=== PATIENT | male | born 1970 | race Caucasian/White ===

== ENCOUNTER 2017-11-15 22:26 | Emergency (ER) | payer SELFPAY ==
[~2017-11-15] VITALS: Ht 167.6 cm; Wt 113.4 kg
[~2017-11-15 22:26] MED LIST: MULT-974 PO
[2017-11-15] MEDS ORDERED: methylPREDNISolone 125 MG (Solu-MEDROL) VIAL ONE (22:34)
[2017-11-15] MEDS ORDERED: FAMOTIDINE 20MG/2ML IV (PEPCID) ONE (22:35)
[2017-11-15] MEDS ORDERED: NS IV 1000 ML 1,000 ML ONE (22:41)
[2017-11-15] MEDS ORDERED: FAMOTIDINE 20MG/2ML IV (PEPCID) IV STA (22:42)
[2017-11-15] MEDS ORDERED: methylPREDNISolone 125 MG (Solu-MEDROL) VIAL IV STA (22:42)
[2017-11-15] MEDS ORDERED: NS IV 1000 ML 1,000 ML IV STA (22:42)
[2017-11-15 22:49] LABS: BASOPHILS % (AUTO) 0 % (0-10); EOSINOPHILS # (AUTO) 0.1 10^3/uL (0.0-0.3); EOSINOPHILS % (AUTO) 1 % (0-10); HEMATOCRIT 46 % (40-54); LYMPHOCYTES # (AUTO) 3.5 X 10^3 (1.0-4.0); LYMPHOCYTES % (AUTO) 29 % (12-44); MEAN CORPUSCULAR HEMOGLOBIN 32 PG (25-34); MEAN CORPUSCULAR HGB CONC 37 G/DL (32-36); MEAN CORPUSCULAR VOLUME 87 FL (80-99); MEAN PLATELET VOLUME 10.5 FL (7.4-10.4); MONOCYTES # (AUTO) 0.5 X 10^3 (0.0-1.0); MONOCYTES % (AUTO) 4 % (0-12); NEUTROPHILS # (AUTO) 7.8 X 10^3 (1.8-7.8); NEUTROPHILS % (AUTO) 65 % (42-75); PLATELET COUNT 258 10^3/uL (130-400); RED CELL DISTRIBUTION WIDTH 12.8 % (10.0-14.5)
[2017-11-15 22:57] VITALS: BP 143/76
--- NOTE | 2017-11-15 23:03 | ED General ---
General Chief Complaint: Allergic Reaction Stated Complaint: SOA HEART RACING RED ALL OVER BODY Nursing Triage Note: pt states when he started shaking and turning red, took approx 6 benadryl now has dry mouth and shortness of breath Nursing Sepsis Screen: No Definite Risk Source of Information: Patient Exam Limitations: No Limitations History of Present Illness Date Seen by Provider: Nov 15, 2017 Time Seen by Provider: 22:17 Initial Comments Here with report of feeling shaky and turning red. She apparently had this going on for a while started on blood pressure medicines about a month ago and has not had a problem since. Tonight he had onset of the redness and pruritus and took 6 ea 25 mg Benadryl tablets in an effort to reduce the symptoms and this did not work. Presents with red skin and high blood pressure. He did take his head blood pressure medicine but he does not know what that was as it is a new medicine. Denies shortness of breath. Does complain of some bubbling in his stomach and a dry mouth. Reports symptoms have been mildly present up to a few hours prior to full onset. Timing/Duration: 1 Hour Severity: Moderate Modifying Factors: improves with Medication Associated Systoms: No Chest Pain, No Cough, No Fever/Chills, No Nausea/ Vomiting, No Shortness of Air, No Weakness Allergies and Home Medications Allergies Coded Allergies: Iodinated Contrast Media - IV Dye (Unverified Adverse Reaction, Mild, RASH , 07/30/07) PT STATED ALLERGY TO "IV CONTRAST". STATED REACTION WAS A RASH. Uncoded Allergies: ENVIRONMENTAL (Allergy, Mild, 08/29/08) Home Medications Multivitamin 1 Each Tablet, 1 EACH PO DAILY, (Reported) Patient Home Medication List Home Medication List Reviewed: Yes Constitutional: see HPI, No chills, No fever EENTM: no symptoms reported Respiratory: no symptoms reported Cardiovascular: no symptoms reported, No chest pain, No edema, No palpitations Gastrointestinal: see HPI, No abdominal pain, No nausea, No vomiting Genitourinary: no symptoms reported Musculoskeletal: no symptoms reported Skin: see HPI, change in color, No lesions, pruritus Psychiatric/Neurological: No Symptoms Reported All Other Systems Reviewed Negative Unless Noted: Yes Past Znfxtic-Nzguqm-Fmfgtj Hx Patient Social History Alcohol Use: Occasionally Uses Recreational Drug Use: No Smoking Status: Never a Smoker Recent Foreign Travel: No Contact w/Someone Who Travel: No Recent Infectious Disease Expo: No Surgeries History of Surgeries: No Respiratory History of Respiratory Disorde: No Cardiovascular History of Cardiac Disorders: Yes Cardiac Disorders: Hypertension Neurological History of Neurological Disord: No Reproductive System Hx Reproductive Disorders: No Gastrointestinal History of Gastrointestinal Di: No Musculoskeletal History of Musculoskeletal Dis: No Psychosocial History of Psychiatric Problem: Yes Reviewed Nursing Assessment Reviewed/Agree w Nursing PMH: Yes Family Medical History Significant Family History: No Pertinent Family Hx Physical Exam Vital Signs Vital Signs - First Documented 11/15/17 22:46 Temp 98.9 Pulse 117 Resp 20 B/P (MAP) 159/116 (130) Pulse Ox 96 Capillary Refill : Less Than 3 Seconds General Appearance: WD/WN, Anxious HEENT: PERRL/EOMI, Pharynx Normal Neck: Non Tender, Supple Respiratory: Lungs Clear, Normal Breath Sounds Cardiovascular: Regular Rate, Rhythm, No Murmur Gastrointestinal: Non Tender, Soft Back: Normal Inspection, No CVA Tenderness, No Vertebral Tenderness Extremity: Normal Range of Motion, Non Tender Neurologic/Psychiatric: Alert, Oriented x3 Skin: Warm/Dry, Erythema, Other (erythematous all skin surfaces. This is blanchable. Denies pruritus or pain.) Progress/Results/Core Measures Suspected Sepsis Recent Fever Within 48 Hours: No Infection Criteria Present: None New/Unexplained Altered Menta: No Sepsis Screen: No Definite Risk Sepsis Diagnosis: SIRS Temperature:98.9 Pulse: 117 Respiratory Rate: 20 Laboratory Tests 11/15/17 22:41: White Blood Count 12.0H Blood Pressure 159 /116 Mean: 130 Laboratory Tests 11/15/17 22:41: Creatinine 1.18, Platelet Count 258, Total Bilirubin 0.5 Results/Orders Lab Results Laboratory Tests Test 11/15/17 22:41 Range/Units White Blood Count 12.0 H 4.3-11.0 10^3/uL Red Blood Count 5.30 4.35-5.85 10^6/uL Hemoglobin 17.0 13.3-17.7 G/DL Hematocrit 46 40-54 % Mean Corpuscular Volume 87 80-99 FL Mean Corpuscular Hemoglobin 32 25-34 PG Mean Corpuscular Hemoglobin Concent 37 H 32-36 G/DL Red Cell Distribution Width 12.8 10.0-14.5 % Platelet Count 258 130-400 10^3/uL Mean Platelet Volume 10.5 H 7.4-10.4 FL Neutrophils (%) (Auto) 65 42-75 % Lymphocytes (%) (Auto) 29 12-44 % Monocytes (%) (Auto) 4 0-12 % Eosinophils (%) (Auto) 1 0-10 % Basophils (%) (Auto) 0 0-10 % Neutrophils # (Auto) 7.8 1.8-7.8 X 10^3 Lymphocytes # (Auto) 3.5 1.0-4.0 X 10^3 Monocytes # (Auto) 0.5 0.0-1.0 X 10^3 Eosinophils # (Auto) 0.1 0.0-0.3 10^3/uL Basophils # (Auto) 0.0 0.0-0.1 10^3/uL Sodium Level 139 135-145 MMOL/L Potassium Level 3.8 3.6-5.0 MMOL/L Chloride Level 105 98-107 MMOL/L Carbon Dioxide Level 22 21-32 MMOL/L Anion Gap 12 5-14 MMOL/L Blood Urea Nitrogen 17 7-18 MG/DL Creatinine 1.18 0.60-1.30 MG/DL Estimat Glomerular Filtration Rate > 60 BUN/Creatinine Ratio 14 Glucose Level 241 H 70-105 MG/DL Calcium Level 9.7 8.5-10.1 MG/DL Total Bilirubin 0.5 0.1-1.0 MG/DL Aspartate Amino Transf (AST/SGOT) 28 5-34 U/L Alanine Aminotransferase (ALT/SGPT) 48 0-55 U/L Alkaline Phosphatase 81 40-136 U/L Total Protein 7.6 6.4-8.2 GM/DL Albumin 4.5 3.2-4.5 GM/DL My Orders Orders - ZIGGY AMANDA MD Methylprednisolone Sod Succ (Solu-Medrol (11/15/17 22:34) Famotidine Injection (Pepcid Injection) (11/15/17 22:35) Cbc With Automated Diff (11/15/17 22:42) Comprehensive Metabolic Panel (11/15/17 22:42) Methylprednisolone Sod Succ (Solu-Medrol (11/15/17 22:42) Ns Iv 1000 Ml (Sodium Chloride 0.9%) (11/15/17 22:42) Famotidine Injection (Pepcid Injection) (3/4/18 22:42) Saline Lock/Iv-Start (11/15/17 22:42) Ns Iv 1000 Ml (Sodium Chloride 0.9%) (11/15/17 22:41) Vital Signs/I&O Vital Sign - Last 12Hours 11/15/17 11/15/17 22:46 22:57 Temp 98.9 Pulse 117 Resp 20 20 B/P (MAP) 159/116 (130) 143/76 (98) Pulse Ox 96 Capillary Refill : Less Than 3 Seconds Blood Pressure Mean: 130 Progress Note : Progress Note Seen and evaluated. IV, labs, normal saline 1 L bolus, Solu-Medrol 125 mg IV, Pepcid 20 mg IV ordered. Monitor patient. 2335, symptoms are markedly improving. Fluids were also completed. I did talk with him about making a diary of events leading up to his episodes to see if he can find a common denominator causing these symptoms. We also discussed at home therapy including Benadryl appropriate dosing and the addition of famotidine or ranitidine. Monitor patient. 0015: Much improved. Discharged home with return precautions. Patient verbalize understanding instructions and agreement with plan. Departure Impression Impression: Primary Impression: Allergic reaction Qualified Codes: T78.40XA - Allergy, unspecified, initial encounter Disposition: HOME, SELF-CARE Condition: Improved Departure-Patient Inst. Decision time for Depature: 00:16 Referrals: NO,LOCAL PHYSICIAN (PCP) Primary Care Physician Patient Instructions: Anaphylaxis (DC) Add. Discharge Instructions: All discharge instructions reviewed with patient and/or family. Voiced understanding. Follow-up with your DrMargarita in a few days for recheck. Take home medications as directed. Take prescribed medication as directed. If you have symptoms, you may take Benadryl (diphenhydramine) 2 tablets or 50 mg at onset of symptoms ( max dose 100 mg or 4 tablets). You may also take famotidine (Pepcid) 20 mg at onset the symptoms for ranitidine (Zantac) 150 mg at onset of symptoms. You should carry one of the other of these with you as well as the Benadryl at all times he should have allergic reaction. Return for worse pain, fever, vomiting , weakness, breathing problems or other concerns as needed. Scripts Prednisone (Prednisone) 20 Mg Tab 40 MG PO DAILY, #6 TAB 0 Refills Prov: ZIGGY AMANDA MD 11/16/17 ZIGGY AMANDA MD Nov 15, 2017 23:03
[2017-11-15 23:07] LABS: ALANINE AMINOTRANSFERASE 48 U/L (0-55); ALBUMIN 4.5 GM/DL (3.2-4.5); ALKALINE PHOSPHATASE 81 U/L (40-136); BILIRUBIN,TOTAL 0.5 MG/DL (0.1-1.0); BUN/CREATININE RATIO 14; CALCIUM 9.7 MG/DL (8.5-10.1); CARBON DIOXIDE 22 MMOL/L (21-32); CHLORIDE 105 MMOL/L (98-107); CREATININE SERUM 1.18 MG/DL (0.60-1.30); GFR ESTIMATED > 60; GLUCOSE 241 MG/DL (70-105); POTASSIUM 3.8 MMOL/L (3.6-5.0); SODIUM 139 MMOL/L (135-145); TOTAL PROTEIN 7.6 GM/DL (6.4-8.2)
[2017-11-16] MEDS ORDERED: PRD20T PO (00:19)
[2017-11-16 00:24] VITALS: BP 143/76
== END 2017-11-16 00:24 | disposition home or self-care (01) ==
LOC: EDUNIT# 22:26 → ER 22:28
DX: T78.40XA Allergy, unspecified, initial encounter (principal); I10 Essential (primary) hypertension; Z91.041 Radiographic dye allergy status
CPT/HCPCS: 36415; 80053; 85025

== ENCOUNTER 2019-06-29 00:30 | Observation (INO) | payer BC ==
[~2019-06-29] VITALS: Ht 165.1 cm; Wt 97.7 kg
[~2019-06-29 00:30] MED LIST changes: +PRD20T PO
[2019-06-29] MEDS ORDERED: ASPIRIN 81 MG CHEW (CHILDREN'S ASA) PO ONE (00:45)
[2019-06-29] MEDS ORDERED: NITROGLYCERIN 0.4 MG SL TABS BTL 25'S SL PRN (00:45)
[2019-06-29 00:53] LABS: BASOPHILS % (AUTO) 1 % (0-10); EOSINOPHILS % (AUTO) 1 % (0-10); HEMATOCRIT 45 % (40-54); HEMOGLOBIN 16.2 G/DL (13.3-17.7); LYMPHOCYTES # (AUTO) 1.6 X 10^3 (1.0-4.0); LYMPHOCYTES % (AUTO) 23 % (12-44); MEAN CORPUSCULAR HEMOGLOBIN 31 PG (25-34); MEAN CORPUSCULAR HGB CONC 36 G/DL (32-36); MEAN CORPUSCULAR VOLUME 87 FL (80-99); MEAN PLATELET VOLUME 10.1 FL (7.4-10.4); MONOCYTES # (AUTO) 0.3 X 10^3 (0.0-1.0); MONOCYTES % (AUTO) 4 % (0-12); NEUTROPHILS # (AUTO) 5.1 X 10^3 (1.8-7.8); NEUTROPHILS % (AUTO) 73 % (42-75); PLATELET COUNT 224 10^3/uL (130-400); RED CELL DISTRIBUTION WIDTH 13.1 % (10.0-14.5)
[2019-06-29] MEDS ORDERED: NS IV 1000 ML 1,000 ML IV ONE (00:58)
[2019-06-29] MEDS ORDERED: meTOprolol TARTRATE 25 MG (LOPRESSOR) TABLET PO ONE (01:00)
[2019-06-29 01:04] LABS: INR 0.9 (0.8-1.4); PROTHROMBIN TIME PATIENT 12.5 SEC (12.2-14.7)
[2019-06-29 01:13] LABS: ALANINE AMINOTRANSFERASE 51 U/L (0-55); ALBUMIN 4.6 GM/DL (3.2-4.5); ALKALINE PHOSPHATASE 76 U/L (40-136); BILIRUBIN,TOTAL 0.5 MG/DL (0.1-1.0); BUN/CREATININE RATIO 12; CARBON DIOXIDE 25 MMOL/L (21-32); CHLORIDE 102 MMOL/L (98-107); CREATININE SERUM 1.03 MG/DL (0.60-1.30); GFR ESTIMATED > 60; GLUCOSE 163 MG/DL (70-105); MAGNESIUM 1.8 MG/DL (1.6-2.4); POTASSIUM 3.8 MMOL/L (3.6-5.0); SODIUM 138 MMOL/L (135-145); TOTAL PROTEIN 7.9 GM/DL (6.4-8.2)
--- NOTE | 2019-06-29 01:22 | ED Chest Pain ---
General Chief Complaint: Chest Pain Stated Complaint: CP,SOB Source: patient Exam Limitations: no limitations History of Present Illness Date Seen by Provider: Jun 29, 2019 Time Seen by Provider: 00:53 Initial Comments Here with intermittent chest pressure and palpitations. States he feels his heart flutter and he has to cough and then it goes away. This is been intermittent since Thursday night after drinking wine and then having activity afterwards. Denies nausea, vomiting, sweating or weakness. Does feel short of breath during the episodes. Has never had anything like this before. He did take a prednisone tonight thinking it might be related to allergic or action which she sometimes gets. He does have environmental allergies. Timing/Duration: changing over time, intermittent, 2-3 days Severity/Quality: mild, pressure, other (palpitations) Location: central Radiation: no radiation Activities at Onset: activity Prior CP/Workup: no prior cardiac workup Modifying Factors: improves with rest ASA po POLICE JUSTICE: Yes (took at home prior to arrival) NTG SL POLICE JUSTICE: No Associated Symptoms: No abdominal pain, No diaphoresis, No fever/chills, No nausea/vomiting; shortness of breath; No weakness Allergies and Home Medications Allergies Coded Allergies: Iodinated Contrast Media - IV Dye (Unverified Adverse Reaction, Mild, RASH, 07/30/07) PT STATED ALLERGY TO "IV CONTRAST". STATED REACTION WAS A RASH. Uncoded Allergies: ENVIRONMENTAL (Allergy, Mild, 08/29/08) Home Medications Multivitamin 1 Each Tablet, 1 EACH PO DAILY, (Reported) Prednisone 20 Mg Tab, 40 MG PO DAILY Prescribed by: ZIGGY AMANDA on 11/16/17 0019 Patient Home Medication List Home Medication List Reviewed: Yes Review of Systems Review of Systems Constitutional: see HPI; No chills, No fever EENTM: No Symptoms Reported Respiratory: See HPI, Cough; Denies SOA at Rest Cardiovascular: Chest Pain; Denies Lightheadedness; Palpitations Gastrointestinal: No Symptoms Reported Genitourinary: No Symptoms Reported All Other Systems Reviewed Negative Unless Noted: Yes Past Hnewbnl-Fcsoxy-Rvjaoo Hx Past Med/Social Hx: Reviewed Nursing Past Med/Soc Hx Patient Social History Alcohol Use: Occasionally Uses Recreational Drug Use: No Smoking Status: Never a Smoker Recent Foreign Travel: No Contact w/Someone Who Travel: No Past Medical History Surgeries: No Respiratory: No Cardiac: Yes Hypertension Neurological: No Reproductive Disorders: No Gastrointestinal: No Musculoskeletal: No Psychosocial: Yes Family Medical History Reviewed Nursing Family Hx No Pertinent Family Hx Physical Exam Vital Signs Vital Signs - First Documented Capillary Refill : Height, Weight, BMI Height: 5'6.00" Weight: 250lbs. oz. [id number]; BMI Method:Estimated General Appearance: WD/WN, Anxious HEENT: PERRL/EOMI, Pharynx Normal Neck: Non Tender, Supple Respiratory: Lungs Clear, Normal Breath Sounds Cardiovascular: Regular Rate, Rhythm, No Murmur, Other (occasional PAC noted on monitor.) Gastrointestinal: Non Tender, Soft Extremity: Normal Inspection, Normal Range of Motion, Non Tender, No Calf Tenderness Neurologic/Psychiatric: Alert, Oriented x3 Skin: Normal Color, Warm/Dry Progress/Results/Core Measures Results/Orders Lab Results Laboratory Tests Test 06/29/19 00:42 06/29/19 02:38 Range/Units White Blood Count 7.0 4.3-11.0 10^3/uL Red Blood Count 5.23 4.35-5.85 10^6/uL Hemoglobin 16.2 13.3-17.7 G/DL Hematocrit 45 40-54 % Mean Corpuscular Volume 87 80-99 FL Mean Corpuscular Hemoglobin 31 25-34 PG Mean Corpuscular Hemoglobin Concent 36 32-36 G/DL Red Cell Distribution Width 13.1 10.0-14.5 % Platelet Count 224 130-400 10^3/uL Mean Platelet Volume 10.1 7.4-10.4 FL Neutrophils (%) (Auto) 73 42-75 % Lymphocytes (%) (Auto) 23 12-44 % Monocytes (%) (Auto) 4 0-12 % Eosinophils (%) (Auto) 1 0-10 % Basophils (%) (Auto) 1 0-10 % Neutrophils # (Auto) 5.1 1.8-7.8 X 10^3 Lymphocytes # (Auto) 1.6 1.0-4.0 X 10^3 Monocytes # (Auto) 0.3 0.0-1.0 X 10^3 Eosinophils # (Auto) 0.0 0.0-0.3 10^3/uL Basophils # (Auto) 0.0 0.0-0.1 10^3/uL Prothrombin Time 12.5 12.2-14.7 SEC INR Comment 0.9 0.8-1.4 Activated Partial Thromboplast Time 31 24-35 SEC D-Dimer 0.43 0.00-0.49 UG/ML Sodium Level 138 135-145 MMOL/L Potassium Level 3.8 3.6-5.0 MMOL/L Chloride Level 102 98-107 MMOL/L Carbon Dioxide Level 25 21-32 MMOL/L Anion Gap 11 5-14 MMOL/L Blood Urea Nitrogen 12 7-18 MG/DL Creatinine 1.03 0.60-1.30 MG/DL Estimat Glomerular Filtration Rate > 60 BUN/Creatinine Ratio 12 Glucose Level 163 H 70-105 MG/DL Calcium Level 10.0 8.5-10.1 MG/DL Corrected Calcium 8.5-10.1 MG/DL Magnesium Level 1.8 1.6-2.4 MG/DL Total Bilirubin 0.5 0.1-1.0 MG/DL Aspartate Amino Transf (AST/SGOT) 31 5-34 U/L Alanine Aminotransferase (ALT/SGPT) 51 0-55 U/L Alkaline Phosphatase 76 40-136 U/L Myoglobin 54.3 10.0-92.0 NG/ML Troponin I < 0.028 < 0.028 <0.028 NG/ML Total Protein 7.9 6.4-8.2 GM/DL Albumin 4.6 H 3.2-4.5 GM/DL Thyroid Stimulating Hormone (TSH) 1.04 0.35-4.94 UIU/ML My Orders Orders - ZIGGY AMANDA MD Cbc With Automated Diff (06/29/19 00:42) Magnesium (06/29/19 00:42) Chest 1 View, Ap/Pa Only (06/29/19 00:42) Ekg Tracing (06/29/19 00:42) Cardiac Profile 1 (06/29/19 00:42) Comprehensive Metabolic Panel (06/29/19 00:42) Myoglobin Serum (06/29/19 00:42) Protime With Inr (06/29/19 00:42) Partial Thromboplastin Time (06/29/19 00:42) O2 (06/29/19 00:42) Monitor-Rhythm Ecg Trace Only (06/29/19 00:42) Lipid Panel (06/30/19 06:00) Ed Iv/Invasive Line Start (06/29/19 00:42) Nitroglycerin 0.4 Mg Btl 25's (Nitrostat (06/29/19 00:45) Aspirin Chewable Tablet (Baby Aspirin Ch (06/29/19 00:45) Ed Iv/Invasive Line Start (06/29/19 00:58) Ns Iv 1000 Ml (Sodium Chloride 0.9%) (06/29/19 00:58) Metoprolol Tartrate (Ir) Tab (Lopressor (06/29/19 01:00) Fibrin Degradation Products (06/29/19 01:00) Thyroid Stimulating Hormone (06/29/19 02:09) Troponin I (06/29/19 02:24) Metoprolol Succinate (Xl) Tab (Toprol Xl (06/29/19 09:00) Apixaban Tablet (Eliquis Tablet) (06/29/19 03:30) Medications Given in ED Current Medications Medications Dose Ordered Sig/Gucci Route Start Time Stop Time Status Last Admin Dose Admin Apixaban 5 mg ONCE ONCE PO 06/29/19 03:30 06/29/19 03:32 DC 06/29/19 03:45 5 MG Metoprolol Tartrate 25 mg ONCE ONCE PO 06/29/19 01:00 06/29/19 01:01 DC 06/29/19 01:05 25 MG Sodium Chloride 1,000 ml @ 0 mls/hr Q0M ONCE IV 06/29/19 00:58 06/29/19 01:00 DC 06/29/19 01:05 1,000 MLS/HR Vital Signs/I&O 06/29/19 06/29/19 06/29/19 00:34 00:34 00:34 Temp 35.5 Pulse 86 Resp 20 B/P (MAP) 158/87 (110) Pulse Ox 100 100 O2 Delivery Room Air Room Air Room Air Progress Progress Note : Progress Note Seen and evaluated. IV, labs, EKG and chest x-ray ordered. ASA ordered but held as patient reported taking at home. Nitroglycerin sublingual ordered when necessary although held as he is not having active persistent chest pain currently. We will give normal saline 1 L bolus and metoprolol 25 mg by mouth now. Monitor patient. 0300: Blood sugar elevated in the 160s on labs. He admits to taking prednisone today and I believe this is likely the cause for that. Could consider continue outpatient evaluation for his blood sugar to see if this is persistent when off steroids. 0325: We have repeated troponin and this is negative. Patient was actually doing much better after metoprolol with respect to rate that was noted to be 70s and sinus on the monitor. On reevaluation, patient now is showing atrial tachycardia that appears to be atrial fibrillation and intermittently sinus tachycardia with PACs as well. Heart rate will intermittently go up into the 140s. I am concerned that this is atrial fibrillation. 0340 Dr. Fernando ho and I did discuss with him shortly after. We will go ahead and initiate Toprol-XL 100 mg by mouth and Eliquis 5 mg by mouth with continued dosing. Given patient's concern and persistence of the intermittent atrial tachycardia with chest discomfort, we will go ahead and admit the patient observation status. Patient prefers this. To be admitted to Dr. Fernando tong. Pending bed assignment. Monitor patient. 0540: Patient did have some persistence in his episodes of tachycardia. Lopressor 5 mg IV given and to allow for the Toprol-XL to begin working better. Patient will go to cardiac step down. He is still having episodes of tachycardia that range from the 70s briefly up to 130s to 140s. He does feel the palpitations when the heart rate elevates. 0545: Patient to cardiac step down. Initial ECG Impression Date: Jun 29, 2019 Initial ECG Impression Time: 00:40 Initial ECG Rate: 80 Initial ECG Rhythm: Normal Sinus Initial ECG Impression: Normal Initial ECG Comparisson: No Previous ECG Available Comment Sinus rhythm with normal axis. No evidence of ST elevation [place]. No previous elbow for comparison. Interpreted by me. EKG : EKG Time: 03:18 Rhythm: A Fib/Flutter Comment Atrial tachycardia that is paroxysmal and irregular with intermittent periods of sinus with PACs. Normal axis. No evidence of ST elevation [place]. Interpreted by me. Diagnostic Imaging Diagonstic Imaging: Xray Plain Films/CT/US/NM/MRI: chest Comments No acute findings when compared to previous. Reviewed: Reviewed by Me Departure Communication (Admissions) Time/Spoke to Admitting Phy: 03:40 Impression Primary Impression: Paroxysmal atrial fibrillation with rapid ventricular response Disposition: ADMITTED INPATIENT Condition: Stable Admissions Decision to Admit Reason: Admit from ER (General) Decision to Admit/Date: Jun 29, 2019 Time/Decision to Admit Time: 03:40 Departure-Patient Inst. Referrals: RIKKI MILES MD (PCP/Family) Primary Care Physician ZIGGY AMANDA MD Jun 29, 2019 01:22
[2019-06-29] MEDS ORDERED: APIXABAN 5 MG (ELIQUIS) TABLET PO ONE (03:30)
[2019-06-29] MEDS ORDERED: meTOproloL SUCCINATE 50 MG (TOPROL XL) TAB PO ONE (03:40)
[2019-06-29] MEDS ORDERED: meTOprolol 5 MG/5 ML (LOPRESSOR) VIAL IV ONE (05:15)
[2019-06-29 05:55] VITALS: BP 97/88
[2019-06-29] MEDS ORDERED: NS IV 1000 ML 1,000 ML IV SCH (06:15)
[2019-06-29 06:20] VITALS: BP 97/88
--- NOTE | 2019-06-29 06:47 | Diagnostic Imaging Report ---
INDICATION: Chest pain and shortness of breath. Comparison made with prior examination 11/28/2018. FINDINGS: The heart size, mediastinal configuration, and pulmonary vascularity are within normal limits. There is no pleural effusion, pneumothorax, or pneumonia. The osseous structures are unremarkable. IMPRESSION: No acute cardiopulmonary abnormality. Dictated by: Dictated on workstation # [id number]
[2019-06-29 08:00] VITALS: BP 124/92
[2019-06-29] MEDS ORDERED: LORA10TA7 PO (08:59)
[2019-06-29] MEDS ORDERED: VITA400C60 PO (08:59)
[2019-06-29] MEDS ORDERED: CYAN-41 PO (08:59)
[2019-06-29] MEDS ORDERED: MULT1TAB69 PO (08:59)
[2019-06-29] MEDS ORDERED: ACTI200C PO (08:59)
[2019-06-29] MEDS ORDERED: DICL50TA6 PO (08:59)
[2019-06-29] MEDS ORDERED: OMG1KC PO (08:59)
[2019-06-29] MEDS ORDERED: APIXABAN 5 MG (ELIQUIS) TABLET PO SCH (09:00)
[2019-06-29] MEDS ORDERED: meTOproloL SUCCINATE 50 MG (TOPROL XL) TAB PO SCH (09:00)
[2019-06-29] MEDS ORDERED: meTOprolol SUCCINATE 100 MG (TOPROL XL) TAB PO SCH (09:00)
--- NOTE | 2019-06-29 09:00 | NUR ---
SPOKE WITH THE PATIENT ABOUT HIS MEDICATIONS. HE STATES HE DOES NOT TAKE ANY PRESCRIPTIONS BUT DID LIST HIS OTC MEDS. HE FILLED DICLOFENAC YESTERDAY AND STATES THIS WAS PRESCRIBED FOR HIS PLANTAR FASCIITIS, HE HAS NOT PICKED IT UP YET. I ADDED IT TO THE MED REC AT THIS TIME FOR REVIEW. HE TAKES THE FOLLOWING OTC: LORATADINE BID PRN VITAMIN E DAILY MTV DAILY FISH OIL DAILY B12 DAILY ACTIVATED CHARCOAL DAILY
--- NOTE | 2019-06-29 09:10 | History & Physical ---
History of Present Illness HPI/Chief Complaint Chief complaint: Palpitations History of present illness: This is a 49-year-old male clinic patient of mine who doesn't come to see me very often who reported palpitations in the past after alcohol use and I even offered a Holter monitor to confirm the suspicion of atrial fibrillation by placing on Holter monitor and drinking alcohol but he wanted to hold off on that when I saw him several months ago. He also has a history of hyperglycemia with mild borderline levels so recommended limit carbohydrates. I also discussed with him regarding my suspicion of obstructive sleep apnea which I talked to him about when I last saw him in the clinic but considering the atrial fibrillation episode he is currently having likely has a a large factor in untreated sleep apnea condition. He reports that he started having palpitations at 9 p.m. and finally worsened to the point he went to the ER found to have normal sinus rhythm with PACs then transition to atrial fibrillation which was not well controlled on medications. I did confer with Dr. King. Source: patient, RN/MD, old records Exam Limitations: no limitations Date Seen 06/29/19 Time Seen by a Provider: 08:45 Attending Physician Liza Daniels DO PCP Liza Daniels DO Referring Physician Date of Admission Jun 29, 2019 at 03:40 Home Medications & Allergies Home Medications Reviewed patient Home Medication Reconciliation performed by pharmacy medication reconciliations landscape technician and/or nursing. Patients Allergies have been reviewed. Allergies Allergies Coded Allergies Iodinated Contrast Media (Unverified Adverse Reaction, Mild, RASH, 07/30/07) PT STATED ALLERGY TO "IV CONTRAST". STATED REACTION WAS A RASH. Uncoded Allergies ENVIRONMENTAL ( Allergy, Mild, 08/29/08) Past Aetifhg-Nvuojm-Yxtwmx Hx Past Med/Social Hx: Reviewed Nursing Past Med/Soc Hx, Reviewed and Corrections made Patient Social History Marrital Status: Employed/Student: employed Alcohol Use: Occasionally Uses Recreational Drug Use: No Smoking Status: Never a Smoker Recent Foreign Travel: No Contact w/other who traveled: No Recent Infectious Disease Expo: No Immunizations Up To Date Tetanus Booster (TDap): Less than 5yrs Pediatric: Yes Past Medical History Cardiac: Hypertension Reproductive: No Sexually Transmitted Disease: No History of Blood Disorders: No Family History Reviewed Nursing Family Hx Cardiovascular disease uncle, Onset:Unknown maternal gpa, , Age:50's - 60, Onset:Unknown FH: prostate cancer 19 FATHER, Onset:Unknown No Pertinent Family Hx Review of Systems Constitutional: see HPI Respiratory: dyspnea on exertion Cardiovascular: palpitations Psychiatric/Neurological: Anxiety Physical Exam Physical Exam Vital Signs Vital Signs - First Documented Capillary Refill : Less Than 3 Seconds Height, Weight, BMI Height: 5'6.00" Weight: 250lbs. oz. [id number]; 35.84 BMI Method:Estimated General Appearance: WD/WN, Anxious, Mild Distress HEENT: PERRL/EOMI, Normal ENT Inspection, Pharynx Normal Neck: Non Tender, Supple Respiratory: Chest Non Tender, Lungs Clear, Normal Breath Sounds, No Accessory Muscle Use, No Respiratory Distress Cardiovascular: Regular Rate, Rhythm, No Edema, No Gallop, No JVD, No Murmur, Other (occasional PAC noted on monitor.) Gastrointestinal: Non Tender, Soft Extremity: Normal Inspection, Normal Range of Motion, Non Tender, No Calf Tenderness Neurologic/Psychiatric: Alert, Oriented x3, No Motor/Sensory Deficits, Normal Mood/Affect, manager research II-XII Norm as Tested Skin: Normal Color, Warm/Dry Results Results/Procedures Labs Laboratory Tests 06/29/19 00:42 Patient resulted labs reviewed. Assessment/Plan Admission Diagnosis Assessment: New diagnosis of atrial fibrillation with history of palpitations in the past after alcohol use but now this was not related to alcohol use with rapid ventricular response requiring admission to the hospital with cardiology consultation History of hyperglycemia Hypertension Obesity High suspicion for obstructive sleep apnea Plan: Repeat sleep study as an outpatient Appreciate cardiology consultation Oral adequate coloration Rate control Admission Status: Observation Diagnosis/Problems Diagnosis/Problems (1) Paroxysmal atrial fibrillation with rapid ventricular response Status: Acute Assessment & Plan: Consult Dr. King Rate control medication Oral anticoagulation for stroke prophylaxis May need cardioversion in the future (2) Hyperglycemia Status: Chronic Assessment & Plan: Patient aware of borderline hyperglycemia Limit carbohydrates (3) Sleep apnea Status: Acute Assessment & Plan: I have long suspected obstructive sleep apnea and we will arrange sleep study as an outpatient Qualifiers: Sleep apnea type: unspecified type Qualified Codes: G47.30 - Sleep apnea, unspecified (4) Obesity (BMI 30-39.9) Status: Chronic Assessment & Plan: Modify dietary intake and increase aerobic exercise for weight loss Clinical Quality Measures AMI/AHF: ASA po Prior to arrival: Yes (took at home prior to arrival) DVT/VTE Risk/Contraindication: Risk Factor Score Per Nursin RFS Level Per Nursing on Admit: 2=Moderate LIZA DANIELS DO Jun 29, 2019 09:10
--- NOTE | 2019-06-29 09:16 | Cardiology History & Physical ---
HPI-Cardiology Cardiology H&P Date of Admission 06/29/19 Primary Care Physician Dionna Chong MD Attending Physician Dustin King MD MA FACP [facility] Primary care physician: Dr Daniels Consulting Physician [facility] CC: Palpitations HPI: 49 yo man with intermittent palpitations for several years, lasting seconds to minutes at a time. On 06/26/19, had a bottle of wine and started to feel palpitation, episodes would last several minutes. On 06/27/19, he was having these palp longer and more frequent. On 06/28/19, these were worse still. Came to ER. Diagnosed with PAF. States has had similar episodes on his "drinking nights" in the past, too. No cp or syncope. Has chronic, slowly progressive, exertional shortness of breath. No leg swelling Review of Systems-Cardiology Review of Systems Constitutional: No malaise, No tiredness, No weight loss, No weight gain Eyes: No vision change Ears/Nose/Throat: No ear discharge, No nasal drainage, No recent hearing loss Respiratory: As described under HPI Cardiovascular: As described under HPI Gastrointestinal: No diarrhea, No nausea, No vomiting Genitourinary: No dysuria, No hematuria Musculoskeletal: No back pain, No joint pain Skin: No rash, No ulcerations Psychiatric/Neurological: No seizure, No focal weakness, No syncope Hematologic: No bleeding abnormalities All Other Systems Reviewed Negative Unless Noted: Yes MPH-Vhxxym-Zhqqot Hx Patient Social History Alcohol Use: Occasionally Uses Recreational Drug Use: No Smoking Status: Never a Smoker Recent Foreign Travel: No Recent Infectious Disease Expo: No Hospitalization with Isolation: Denies Immunizations Up To Date Tetanus Booster (TDap): Less than 5yrs Past Medical History PMH As described under Assessment. Family Medical History Family History: Cardiovascular disease uncle, Onset:Unknown maternal gpa, , Age:50's - 60, Onset:Unknown FH: prostate cancer 19 FATHER, Onset:Unknown Allergies and Home Medications Allergies Coded Allergies: Iodinated Contrast Media (Unverified Adverse Reaction, Mild, RASH, 07/30/07) PT STATED ALLERGY TO "IV CONTRAST". STATED REACTION WAS A RASH. Uncoded Allergies: ENVIRONMENTAL (Allergy, Mild, 08/29/08) Home Medications Activated Charcoal 200 Mg Capsule, 200 MG PO DAILY, (Reported) Cyanocobalamin (Vitamin B-12) 1,000 Mcg Tablet, 1,000 MCG PO DAILY, (Reported) Diclofenac Sodium 50 Mg Tablet.dr, 50 MG PO TID PRN for PLANTAR FASCIITIS, (Reported) HAS NOT PICKED UP YET Loratadine 10 Mg Tablet, 10 MG PO BID PRN for ALLERGIES, (Reported) Multivitamin 1 Each Tablet, 1 TAB PO DAILY, (Reported) [place] 3 Polyunsat Fatty Acids 1,000 Mg Cap, 1,000 MG PO DAILY, (Reported) Vitamin E Acetate 400 Unit Capsule, 400 UNIT PO DAILY, (Reported) Patient Home Medication List Home Medication List Reviewed: Yes Physical Exam-Cardiology Physical Exam Vital Signs/I&O 06/29/19 06/29/19 06/29/19 06/29/19 00:34 00:34 00:34 05:40 Temp 35.5 Pulse 86 Resp 20 B/P (MAP) 158/87 (110) Pulse Ox 100 100 O2 Delivery Room Air Room Air Room Air Room Air 06/29/19 06/29/19 06/29/19 06/29/19 05:42 05:54 05:55 06:20 Temp 35.5 37.2 37.2 Pulse 134 117 118 118 Resp 20 18 18 B/P (MAP) 136/69 (110) 97/88 (91) 97/88 Pulse Ox 100 97 97 O2 Delivery Room Air Room Air Room Air 06/29/19 06/29/19 06/29/19 06/29/19 07:00 07:56 07:58 08:00 Temp 36.5 Pulse 110 71 Resp 20 B/P (MAP) 124/92 (103) Pulse Ox 96 O2 Delivery Room Air Room Air Capillary Refill : Less Than 3 Seconds Constitutional: AAO x 3, well-developed, well-nourished HEENT: PERRL, EOMI, hearing is well preserved; No xanthelasmas are seen Neck: carotid pulses are 2 + bilaterally, with good upstrokes Respiratory: accessory muscle use; No lungs clear to percussion, No lungs clear to auscultation Cardiovascular: regular rate-rhythm, S1 and S2, systolic murmur (faint OMARI at card base) Gastrointestinal: No tender; soft; No guarding, No rebound; audible bowel sounds Extremities: No swelling, No cyanosis, No significant edema Neurologic/Psychiatric: oriented x 3, grossly intact, power is 5/5 both on sides Skin: No rash on exposed areas, No ulcerations on exposed areas Data Review Labs Laboratory Tests 06/29/19 00:42: White Blood Count 7.0, Red Blood Count 5.23, Hemoglobin 16.2, Hematocrit 45, Mean Corpuscular Volume 87, Mean Corpuscular Hemoglobin 31, Mean Corpuscular Hemoglobin Concent 36, Red Cell Distribution Width 13.1, Platelet Count 224, Mean Platelet Volume 10.1, Neutrophils (%) (Auto) 73, Lymphocytes (%) (Auto) 23, Monocytes (%) (Auto) 4, Eosinophils (%) (Auto) 1, Basophils (%) (Auto) 1, Neutrophils # (Auto) 5.1, Lymphocytes # (Auto) 1.6, Monocytes # (Auto) 0.3, Eosinophils # (Auto) 0.0, Basophils # (Auto) 0.0, Prothrombin Time 12.5, INR Comment 0.9, Activated Partial Thromboplast Time 31, D-Dimer 0.43, Sodium Level 138, Potassium Level 3.8, Chloride Level 102, Carbon Dioxide Level 25, Anion Gap 11, Blood Urea Nitrogen 12, Creatinine 1.03, Estimat Glomerular Filtration Rate > 60, BUN/Creatinine Ratio 12, Glucose Level 163H, Calcium Level 10.0, Corrected Calcium , Magnesium Level 1.8, Total Bilirubin 0.5, Aspartate Amino Transf (AST/SGOT) 31, Alanine Aminotransferase (ALT/SGPT) 51, Alkaline Phosphatase 76, Myoglobin 54.3, Troponin I < 0.028, Total Protein 7.9, Albumin 4.6H, Thyroid St imulating Hormone (TSH) 1.04 06/29/19 02:38: Troponin I < 0.028 Laboratory Tests 06/29/19 00:42 A/P-Cardiology Assessment/Admission Diagnosis PAF with RVR Intermittent heavy alcohol use Obesity with BMI approx 36 TSH 1.04 on 06/29/19 Admission Status: Observation Discussion and Recomendations * Beta-marcie for vent rate control * Apixaban for stroke prophylaxis * Echo to eval for structural heart disease * Sleep studies and MPI as outpatient * Advised to stop alcohol use * I discussed his case with his family physician Dr Daniels Clinical Quality Measures AMI/AHF: ASA po Prior to arrival: Yes (took at home prior to arrival) DVT/VTE Risk/Contraindication: Risk Factor Score Per Nursin RFS Level Per Nursing on Admit: 2=Moderate DUSTIN KING MD FACP [facility]AC [facility] Jun 29, 2019 09:16
[2019-06-29] MEDS ORDERED: meTOprolol SUCCINATE 100 MG (TOPROL XL) TAB PO NR (09:30)
[2019-06-29] MEDS ORDERED: APIX5TAB PO (09:31)
[2019-06-29] MEDS ORDERED: METO-395 PO (09:31)
--- NOTE | 2019-06-29 09:32 | Discharge Inst-Cardiology ---
Discharge Inst-Cardiac Discharge Medications New Medications: Apixaban (Eliquis) 5 Mg Tablet 5 MG PO BID for 30 Days, #60 TAB Metoprolol Succinate (Metoprolol Succinate) 100 Mg Tab.er.24h 100 MG PO DAILY for 30 Days, #60 TAB 5 Refills Continued Medications: Cyanocobalamin (Vitamin B-12) (Vitamin B-12) 1,000 Mcg Tablet 1000 MCG PO DAILY, TAB Loratadine (Loratadine) 10 Mg Tablet 10 MG PO BID PRN for ALLERGIES, TAB Multivitamin (Multivitamins) 1 Each Tablet 1 TAB PO DAILY, TAB [place] 3 Polyunsat Fatty Acids (Fish Oil 1,000 mg Capsule) 1,000 Mg Cap 1000 MG PO DAILY, CAP Discontinued Medications: Activated Charcoal (Charcoal) 200 Mg Capsule 200 MG PO DAILY, CAP Diclofenac Sodium (Diclofenac Sodium) 50 Mg Tablet.dr 50 MG PO TID PRN for PLANTAR FASCIITIS, TAB HAS NOT PICKED UP YET Vitamin E Acetate (Vitamin E) 400 Unit Capsule 400 UNIT PO DAILY, CAP Patient Instructions Patient Instructions: No alcohol please CLARENCE MEEKS MD FACP [facility]AC [facility] Jun 29, 2019 09:32
[2019-06-29] MEDS ORDERED: DILTIAZEM 180 MG (CARDIZEM CD) CAP PO NR (10:30)
[2019-06-29] MEDS ORDERED: DILT180C90 PO (11:43)
[2019-06-29 12:00] VITALS: BP 97/87
[2019-06-29 15:09] VITALS: BP 97/87
[2019-06-30] MEDS ORDERED: DILTIAZEM 180 MG (CARDIZEM CD) CAP PO SCH (09:00)
[2019-06-30] MEDS ORDERED: meTOprolol SUCCINATE 100 MG (TOPROL XL) TAB PO SCH (09:00)
--- NOTE | 2019-07-05 15:37 | Physician Query-Final Dx ---
MALENA BROOKS 07/05/19 1537: Final Diagnosis Give Final Diagnosis Please give Final Diagnosis PATRICIA LEIGH DO 07/05/192055: Final Diagnosis Give Final Diagnosis AF w/RVR MALENA BROOKS Jul 05, 2019 15:37 PATRICIA LEIGH DO Jul 05, 2019 20:56
== END 2019-06-29 14:48 | disposition home or self-care (01) ==
LOC: EDUNIT# 00:30 → ER 00:32 → ICU 03:40
PROVIDERS: ADMIT Internal Medicine; ATTEND Internal Medicine
DX: I48.0 Paroxysmal atrial fibrillation (principal); I10 Essential (primary) hypertension; E66.9 Obesity, unspecified; Z91.041 Radiographic dye allergy status; Z68.36 Body mass index [BMI] 36.0-36.9, adult; Z79.899 Other long term (current) drug therapy; Z82.49 Family history of ischemic heart disease and other diseases of the circulatory system; Z80.42 Family history of malignant neoplasm of prostate
CPT/HCPCS: 36415; 71045; 80053; 83735; 83874; 84443; 84484; 85025; 85379; 85610; 85730; 93005; 93041; 93306

== ENCOUNTER 2019-08-15 13:48 | Outpatient (CLI) | payer BC ==
[~2019-08-15 13:48] MED LIST changes: +ACTI200C PO; +APIX5TAB PO; +CYAN-41 PO; +DICL50TA6 PO; +DILT180C90 PO; +LORA10TA7 PO; +METO-395 PO; +MULT1TAB69 PO; +OMG1KC PO; +VITA400C60 PO
== END 2019-08-15 14:21 | disposition home or self-care (01) ==
LOC: SLEEP 13:48
PROVIDERS: ATTEND Otolaryngology Otolaryngology/Facial Plastic Surgery
DX: G47.33 Obstructive sleep apnea (adult) (pediatric) (principal); I48.91 Unspecified atrial fibrillation; T78.1XXA Other adverse food reactions, not elsewhere classified, initial encounter

== ENCOUNTER → 2019-09-27 | Outpatient (CLI) | payer BC ==
[~2019-09-27] VITALS: Ht 165 cm; Wt 100.0 kg
[~2019-09-27] MED LIST changes: +CATHETER FLUSH 10 ML SYR IV PRN; +DILT-28 PO; -DILT180C90 PO; -METO-395 PO; +MTP100TCR PO; +REGADENOSON 0.4 MG/5 ML SYR (LEXISCAN) IV ONE
[2019-09-27 13:24] VITALS: BP 103/68
[2019-09-27 13:28] VITALS: BP 139/80
--- NOTE | 2019-09-29 11:23 | STRESS TEST ---
DATE OF SERVICE: 09/27/2019 RESTING AND POST REGADENOSON TECHNETIUM-99M TETROFOSMIN SPECT CT IMAGING ORDERING PHYSICIAN: Teri Rahman APRN PRIMARY PHYSICIAN: Dr. Chong. CLINICAL DIAGNOSES: Paroxysmal atrial fibrillation, hypertension, hyperlipidemia. Baseline images were carried out after injection of 10.5 mCi of technetium-99m Tetrofosmin. This was followed by 0.4 mg regadenoson and 28.4 mCi of technetium-99m Tetrofosmin for stress imaging. The electrocardiogram showed sinus rhythm at baseline. It did not change significantly with regadenoson infusion. Review of images at rest and following stress does not indicate distinct perfusion defects consistent with myocardial ischemia or infarction. Mild diaphragmatic attenuation is seen both at rest and following regadenoson infusion. Gated images showed normal global left ventricular systolic function with normal regional wall motion, including the diaphragmatic wall of the left ventricle. Left ventricular ejection fraction is calculated to be 72%. Left ventricular end diastolic volume is 56 mL. TID is absent (1.04). CONCLUSIONS: 1. No evidence of any significant myocardial ischemia or infarction is seen. 2. Normal regional wall motion. 3. Normal global left ventricular systolic function with a calculated ejection fraction of 72%. Job ID: [id number] DocumentID: [id number] Dictated Date: 09/29/2019 09:56:03 Outsole Flexer Date: 09/29/2019 11:22:22 Dictated By: CLARENCE MEEKS MD, MA, FACP, FACC,
== END ==
LOC: CARD 11:40
PROVIDERS: ATTEND Nurse Practitioner Family
DX: I48.0 Paroxysmal atrial fibrillation (principal); I10 Essential (primary) hypertension; E78.5 Hyperlipidemia, unspecified; G47.33 Obstructive sleep apnea (adult) (pediatric)
CPT/HCPCS: 78452; 93017

== ENCOUNTER → 2020-06-25 | Outpatient (CLI) | payer BC ==
[~2020-06-25] MED LIST changes: -CATHETER FLUSH 10 ML SYR IV PRN; +MULT-567 PO; -MULT1TAB69 PO; -REGADENOSON 0.4 MG/5 ML SYR (LEXISCAN) IV ONE
--- NOTE | 2020-06-25 10:10 | Diagnostic Imaging Report ---
INDICATION: Knee pain after injury. TECHNIQUE: Three views were obtained. FINDINGS: The alignment is normal. There are mild degenerative changes. There is no fracture or dislocation. The soft tissues are unremarkable. IMPRESSION: Minimal degenerative changes; otherwise, unremarkable. Dictated by: Dictated on workstation # [id number]
== END ==
LOC: ORTHO 09:21
PROVIDERS: ATTEND Orthopaedic Surgery
DX: M25.562 Pain in left knee (principal)
CPT/HCPCS: 73562; G0463; 99203

== ENCOUNTER → 2020-07-03 | Outpatient (CLI) | payer BC ==
[~2020-07-03] MED LIST changes: +GADOBUTROL 10 MMOL/10 ML (GADAVIST) VIAL IV ONE
--- NOTE | 2020-07-03 10:19 | Diagnostic Imaging Report ---
PROCEDURE: MRI left joint lower extremity without contrast. TECHNIQUE: Multiplanar, multisequence non contrast-enhanced MRI of the left lower extremity was accomplished. INDICATION: Patellofemoral syndrome, iliotibial band syndrome. Chronic left knee pain. Left knee surgery 20 years ago. COMPARISON: Radiographs from 06/25/2020 FINDINGS: No acute fracture is seen in the left knee. Subcortical cystlike changes are seen in the medial tibial plateau, which are likely degenerative. There is a small left knee joint effusion and a small Burgess's cyst. Alignment appears normal. The articular cartilage in the patellofemoral compartment demonstrates no full-thickness defects. The articular cartilage in the medial compartment demonstrates moderate thinning with surface irregularity and small full-thickness defects. The articular cartilage in the lateral compartment demonstrates mild thinning and heterogeneity. There is complex tearing of the posterior horn and body of the medial meniscus. The lateral meniscus appears intact. The anterior cruciate ligament demonstrates marked mucoid degeneration, with no complete tear present. The posterior cruciate ligament is intact. The medial collateral ligament is intact. The lateral collateral ligamentous complex appears intact. No abnormal fluid signal is seen underlying the distal iliotibial band. There is some edema in Hoffa's fat pad, but none in the superolateral corner, and this is likely related to the small joint effusion. There is a multilobulated cystic structure posteriorly (image 23 series 4) measuring 1.2 x 1.6 cm in size on axial imaging and 2.7 cm craniocaudal which appears to have a neck to the posterior joint and likely represents a ganglion cyst. IMPRESSION: 1. Complex tearing of the medial meniscus in the left knee. 2. Marked mucoid degeneration of the anterior cruciate ligament. 3. Small left knee joint effusion with a small Burgess's cyst. Additional posterior ganglion cyst Dictated by: Dictated on workstation # [id number]
== END ==
LOC: RAD 06-29 07:46 → EDSTATUS 06-29 08:00 → RAD 06-29 08:20
PROVIDERS: ATTEND Orthopaedic Surgery
DX: S83.231A Complex tear of medial meniscus, current injury, right knee, initial encounter (principal); M22.2X2 Patellofemoral disorders, left knee; M23.8X2 Other internal derangements of left knee; M71.22 Synovial cyst of popliteal space [Baker], left knee; M67.462 Ganglion, left knee; Z98.890 Other specified postprocedural states
CPT/HCPCS: 73721

== ENCOUNTER → 2020-09-13 | Outpatient (CLI) | payer BC ==
[~2020-09-13] MED LIST changes: -GADOBUTROL 10 MMOL/10 ML (GADAVIST) VIAL IV ONE
== END ==
LOC: LABNPT 05:41
PROVIDERS: ATTEND Orthopaedic Surgery
DX: Z01.812 Encounter for preprocedural laboratory examination (principal); Z20.828 Contact with and (suspected) exposure to other viral communicable diseases
CPT/HCPCS: 87635

== ENCOUNTER 2021-03-14 15:40 | Inpatient (IN) | payer BC ==
[~2021-03-14] VITALS: Ht 165.1 cm; Wt 98.5 kg
[2021-03-14] MEDS ORDERED: DOCUSATE SODIUM 100 MG (COLACE) CAP PO PRN (15:45)
[2021-03-14] MEDS ORDERED: HYDROmorphone 2 MG/ML VIAL (DILAUDID) IVP PRN (15:45)
[2021-03-14] MEDS ORDERED: cefTRIAXone 1,000 MG in WATER (STERILE) FOR INJECTION 10 ML IV SCH (15:45)
[2021-03-14] MEDS ORDERED: ALPRAZolam 0.25 MG (XANAX) TAB PO PRN (15:45)
[2021-03-14] MEDS ORDERED: LOPERAMIDE 2 MG (IMODIUM) TABLET PO PRN (15:45)
[2021-03-14] MEDS ORDERED: CALCIUM CARBONATE 500 MG (TUMS) TAB.CHEW PO PRN (15:45)
[2021-03-14] MEDS ORDERED: MELATONIN 3 MG TABLET PO PRN (15:45)
[2021-03-14] MEDS ORDERED: HYDROcodone/APAP 5 MG/325 MG (LORTAB) TAB PO PRN (15:45)
[2021-03-14] MEDS ORDERED: diphenhydrAMINE 25 MG TAB (BENADRYL) PO PRN (15:45)
[2021-03-14] MEDS ORDERED: LORATADINE (CLARITIN) 10 MG TAB PO ONE (15:45)
[2021-03-14] MEDS ORDERED: NS IV 1000 ML 1,000 ML IV SCH (15:45)
[2021-03-14] MEDS ORDERED: ACETAMINOPHEN 500 MG TAB (TYLENOL) PO PRN (15:45)
[2021-03-14] MEDS ORDERED: ONDANSETRON 4 MG/2 ML (SDV) Z0FRAN IVP PRN (15:45)
[2021-03-14] MEDS ORDERED: VANCOMYCIN INJECTION 0.1 MG in NS (IVPB) 250 ML IV SCH (15:45)
[2021-03-14] MEDS ORDERED: CHOL100048 PO (15:58)
[2021-03-14] MEDS ORDERED: IODI150T PO (15:58)
[2021-03-14 16:07] VITALS: BP 150/82
[2021-03-14 16:27] LABS: BASOPHILS # (AUTO) 0.1 10^3/uL (0.0-0.1); BASOPHILS % (AUTO) 0 % (0-10); EOSINOPHILS % (AUTO) 0 % (0-10); HEMATOCRIT 47 % (40-54); HEMOGLOBIN 16.5 g/dL (13.3-17.7); LYMPHOCYTES # (AUTO) 1.5 X 10^3 (1.0-4.0); LYMPHOCYTES % (AUTO) 13 % (12-44); MEAN CORPUSCULAR HEMOGLOBIN 31 pg (25-34); MEAN CORPUSCULAR HGB CONC 35 g/dL (32-36); MEAN CORPUSCULAR VOLUME 87 fL (80-99); MEAN PLATELET VOLUME 10.3 fL (9.0-12.2); MONOCYTES # (AUTO) 0.9 X 10^3 (0.0-1.0); MONOCYTES % (AUTO) 8 % (0-12); NEUTROPHILS # (AUTO) 9.2 X 10^3 (1.8-7.8); NEUTROPHILS % (AUTO) 79 % (42-75); PLATELET COUNT 205 10^3/uL (130-400); WHITE BLOOD COUNT 11.7 10^3/uL (4.3-11.0)
[2021-03-14 16:35] LABS: ALBUMIN 4.7 GM/DL (3.2-4.5); CHLORIDE 101 MMOL/L (98-107); POTASSIUM 3.7 MMOL/L (3.6-5.0); SODIUM 137 MMOL/L (135-145)
[2021-03-14 16:37] LABS: GLUCOSE 123 MG/DL (70-105); TOTAL PROTEIN 8.5 GM/DL (6.4-8.2)
[2021-03-14 16:38] LABS: CARBON DIOXIDE 24 MMOL/L (21-32)
[2021-03-14 16:39] LABS: BILIRUBIN,TOTAL 0.6 MG/DL (0.1-1.0)
[2021-03-14 16:41] LABS: ALKALINE PHOSPHATASE 69 U/L (40-136); CREATININE SERUM 1.05 MG/DL (0.60-1.30); GFR ESTIMATED > 60
[2021-03-14 16:42] LABS: BUN/CREATININE RATIO 13
[2021-03-14] MEDS: NS IV 1000 ML 1,000 ML IV SCH (16:42)
[2021-03-14 16:44] LABS: ALANINE AMINOTRANSFERASE 40 U/L (0-55)
--- NOTE | 2021-03-14 16:47 | Consultation - Surgery ---
CHAPIN BARBER MED STUDENT 03/14/21 1647: History of Present Illness History of Present Illness Patient Consulted On(vandana/time) 03/14/21 16:41 Date Seen by Provider: Mar 14, 2021 Time Seen by Provider: 16:30 History of Present Illness 50 year old male presents with back mass on his central lower back. He was seeing his primary care provider earlier today for an unrelated issue when he showed the lesion to his doctor and she sent him to the hospital. Patient reports he has had a bump in that same area every since "falling 14 years ago" with no problems until two weeks ago it started to become red and painful, it has continued to grow in size. It drained some purulent fluid 2 days ago. He reports he has not had any fevers or other symptoms until today when he began to feel "feverish" and was having some nausea to the point he "almost vomited". He reports nothing has made it better, and that the pain is worse with walking and driving.. Allergies and Home Medications Allergies Coded Allergies: Iodinated Contrast Media (Unverified Adverse Reaction, Mild, RASH, 07/30/07) PT STATED ALLERGY TO "IV CONTRAST". STATED REACTION WAS A RASH. Uncoded Allergies: ENVIRONMENTAL (Allergy, Mild, 08/29/08) Home Medications Cholecalciferol (Vitamin D3) 25 Mcg Capsule, 25 MCG PO DAILY, (Reported) Last Action: Reviewed Iodine 150 Mcg Tablet, 150 MCG PO DAILY, (Reported) Last Action: Reviewed Loratadine 10 Mg Tablet, 10 MG PO BID PRN for ALLERGIES, (Reported) Last Action: Reviewed Multivitamin 1 Each Tablet, 1 TAB PO DAILY, (Reported) Last Action: Reviewed [place] 3 Polyunsat Fatty Acids 1,000 Mg Cap, 1,000 MG PO DAILY, (Reported) Last Action: Reviewed Past Yoewdan-Ypvjgt-Kireni Hx Patient Social History Smoking Status: Never a Smoker Immunizations Up To Date Tetanus Booster (TDap): Less than 5yrs PED Vaccines UTD: Yes Seasonal Allergies Seasonal Allergies: Yes Surgeries History of Surgeries: Yes (umbillical hernia repair, 2X left knee scopes) Respiratory History of Respiratory Disorde: No Cardiovascular History of Cardiac Disorders: Yes Cardiac Disorders: Atrial Fibrillation, Hypertension Neurological History of Neurological Disord: No Reproductive System Hx Reproductive Disorders: No Sexually Transmitted Disease: No Genitourinary History of Genitourinary Disor: No Gastrointestinal History of Gastrointestinal Di: No Musculoskeletal History of Musculoskeletal Dis: No Endocrine History of Endocrine Disorders: No Psychosocial History of Psychiatric Problem: No Integumentary Skin/Integumentary Disorders: Recent Skin Changes Blood Transfusions History of Blood Disorders: No Family Medical History Significant Family History: Heart Disease (uncle), Cancer (father - prostate) Family Medial History: Cardiovascular disease uncle, Onset:Unknown maternal gpa, , Age:50's - 60, Onset:Unknown FH: prostate cancer 19 FATHER, Onset:Unknown Review of Systems-General Constitutional: chills, fever; No weakness EENTM: No hearing loss, No blurred vision, No mouth pain Respiratory: No cough, No dyspnea on exertion, No short of breath Cardiovascular: No chest pain, No palpitations Gastrointestinal: abdominal pain (LLQ ); No constipation, No diarrhea Genitourinary: No dysuria, No frequency; nocturia Musculoskeletal: back pain, joint pain (Thumb); No muscle pain, No muscle stiffness Skin: see HPI; No pruritus, No rash Psychiatric/Neurological: Denies Anxiety, Denies Depressed, Denies Headache Physical Exam-General Problems Physical Exam Vital Signs Vital Signs - First Documented 03/14/21 16:07 Temp 37.7 Pulse 110 Resp 18 B/P (MAP) 150/82 (104) Pulse Ox 96 O2 Delivery Room Air Capillary Refill : Eyes: Bilateral Eye Normal Inspection, Bilateral Eye PERRL, Bilateral Eye EOMI HEENT: No scleral icterus (R), No scleral icterus (L), No photophobia Neck: non-tender, supple Respiratory: chest non-tender, lungs clear, normal breath sounds, no respiratory distress, no accessory muscle use Cardiovascular: regular rate, rhythm, no murmur Peripheral Pulses: 2+ Radial Pulses (R), 2+ Radial Pulses (L) Gastrointestinal: normal bowel sounds, non tender, soft, no organomegaly, no pulsatile mass Extremities: normal range of motion, non-tender, no pedal edema, no calf tenderness Neurologic/Psychiatric: no motor/sensory deficits, alert, normal mood/affect Skin: other (erythematous pustule with 3 separate comedones approx 2.5 cm in diameter, surrounded by a eythematous indurated area of approx 10 cm in diameter) Lymphatic: no adenopathy (neck, axilla, groin) Data Review Labs Laboratory Tests 7/1/21 16:10: White Blood Count 11.7H, Red Blood Count 5.40, Hemoglobin 16.5, Hematocrit 47, Mean Corpuscular Volume 87, Mean Corpuscular Hemoglobin 31, Mean Corpuscular Hemoglobin Concent 35, Red Cell Distribution Width 12.9, Platelet Count 205, Mean Platelet Volume 10.3, Immature Granulocyte % (Auto) 0, Neutrophils (%) (Auto) 79H, Lymphocytes (%) (Auto) 13, Monocytes (%) (Auto) 8, Eosinophils (%) (Auto) 0, Basophils (%) (Auto) 0, Neutrophils # (Auto) 9.2H, Lymphocytes # (Auto) 1.5, Monocytes # (Auto) 0.9, Eosinophils # (Auto) 0.0, Basophils # (Auto) 0.1, Immature Granulocyte # (Auto) 0.0, Sodium Level 137, Potassium Level 3.7, Chloride Level 101, Carbon Dioxide Level 24, Anion Gap 12, Creatinine 1.05, Estimat Glomerular Filtration Rate > 60, Glucose Level 123H, Lactic Acid Level 1.11, Calcium Level 10.0, Corrected Calcium , Total Bilirubin 0.6, Alkaline Phosphatase 69, C-Reactive Protein High Sensitivity 3.22H, Total Protein 8.5H, Albumin 4.7H Assessment/Plan Assessment/Plan Assessment/Plan Abscess midline lower back - I/D - wound/blood culture - start vancomycin Clinical Quality Measures DVT/VTE Risk/Contraindication: Contraindications-Pharm: Other *list below* Other: CORBIN Rodrigues DO 03/14/21 7486: History of Present Illness History of Present Illness Time Seen by Provider: 17:31 History of Present Illness Pt states the pain is moderate, not getting any better on oral ABX. States it has never gotten swollen like this. Allergies and Home Medications Allergies Coded Allergies: Iodinated Contrast Media (Unverified Adverse Reaction, Mild, RASH, 07/30/07) PT STATED ALLERGY TO "IV CONTRAST". STATED REACTION WAS A RASH. Uncoded Allergies: ENVIRONMENTAL (Allergy, Mild, 08/29/08) Home Medications Cholecalciferol (Vitamin D3) 25 Mcg Capsule, 25 MCG PO DAILY, (Reported) Last Action: Reviewed Iodine 150 Mcg Tablet, 150 MCG PO DAILY, (Reported) Last Action: Reviewed Loratadine 10 Mg Tablet, 10 MG PO BID PRN for ALLERGIES, (Reported) Last Action: Reviewed Multivitamin 1 Each Tablet, 1 TAB PO DAILY, (Reported) Last Action: Reviewed [place] 3 Polyunsat Fatty Acids 1,000 Mg Cap, 1,000 MG PO DAILY, (Reported) Last Action: Reviewed Patient Home Medication List Home Medication List Reviewed: Yes Past Hyateki-Yqnjmz-Ycfgnb Hx Patient Social History Smoking Status: Never a Smoker Seasonal Allergies Seasonal Allergies: Yes Surgeries History of Surgeries: Yes (umbillical hernia repair, 2X left knee scopes) Surgeries: Abdominal, Orthopedic Respiratory History of Respiratory Disorde: No Cardiovascular History of Cardiac Disorders: Yes Cardiac Disorders: Atrial Fibrillation, Hypertension Family Medical History Significant Family History: Heart Disease (uncle), Cancer (father - prostate) Family Medial History: Cardiovascular disease uncle, Onset:Unknown maternal gpa, , Age:50's - 60, Onset:Unknown FH: prostate cancer 19 FATHER, Onset:Unknown Review of Systems-General Constitutional: chills, fever (pt felt warm, did not take temp); No weakness EENTM: No hearing loss, No blurred vision, No mouth pain Respiratory: No cough, No dyspnea on exertion, No short of breath Cardiovascular: No chest pain, No palpitations Gastrointestinal: abdominal pain (LLQ ); No constipation, No diarrhea Genitourinary: No dysuria, No frequency Musculoskeletal: back pain; No muscle pain, No muscle stiffness Psychiatric/Neurological: Denies Anxiety, Denies Depressed Physical Exam-General Problems Physical Exam General Appearance: WD/WN, mild distress Eyes: Bilateral Eye PERRL, Bilateral Eye EOMI HEENT: No scleral icterus (R), No scleral icterus (L), No photophobia Neck: non-tender, supple Respiratory: chest non-tender, lungs clear, normal breath sounds, no respiratory distress, no accessory muscle use Cardiovascular: regular rate, rhythm, no murmur Peripheral Pulses: 2+ Radial Pulses (R), 2+ Radial Pulses (L) Gastrointestinal: normal bowel sounds, non tender, soft, no organomegaly, no pulsatile mass Extremities: normal range of motion, non-tender, no pedal edema, no calf tenderness Neurologic/Psychiatric: quality assurance calibrator II-XII nml as tested, alert, normal mood/affect, oriented x 3 Skin: other (erythematous pustule with 3 separate comedones approx 2.5 cm in diameter, surrounded by a eythematous indurated area of approx 10 cm in diameter) Lymphatic: no adenopathy (neck, axilla, groin) Assessment/Plan Assessment/Plan Assessment/Plan Abscess/Cellulitis Lower Back -plan is IV fluids, IV ABX, pain control, pt ate today and therefore cannot do surgery today. I gave pt the option of surgery at bedside, in the OR, or even waiting til the morning to recheck and may not need to do surgery. He wants to wait til the am, but is leaning toward I&D Supervisory-Addendum Brief Verification & Attestation Participated in pt care: history, MDM, physical Personally performed: exam, history, MDM, supervision of care Care discussed with: Medical Student Procedures: n/a Verification and Attestation of Medical Student E/M Service A medical student performed and documented this service. I then reviewed and verified all information documented by the medical student and made modifications to such information, when appropriate. I personally performed a physical exam, medical decision making and then discussed any differences between the notes and made revisions as necessary to create one note. Corbin Sanchez , 03/14/21 , 17:56 CHAPIN BARBER MED STUDENT Mar 14, 2021 16:47 CORBIN SANCHEZ DO Mar 14, 2021 17:56
[2021-03-14] MEDS ORDERED: VANCOMYCIN 2000 MG/NS 500 ML IVPB IV NR ×2 (17:00)
[2021-03-14 17:20] VITALS: BP 150/82
[2021-03-14] MEDS ORDERED: RT-ALBUTEROL SULF 2.5 MG/3 ML PRE-MIX VIAL INH SCH (17:30)
[2021-03-14] MEDS ORDERED: RT-ALBUTEROL SULF 2.5 MG/3 ML PRE-MIX VIAL INH PRN (17:45)
[2021-03-14 19:09] VITALS: BP 136/78
[2021-03-14] MEDS ORDERED: ACETAMINOPHEN 325 MG TABLET PO PRN (19:30)
[2021-03-14] MEDS ORDERED: ACETAMINOPHEN 325 MG TABLET ONE (19:32)
[2021-03-14] MEDS: SENNA W/DOCUSATE (SENOKOT S) TABLET PO SCH (19:39)
[2021-03-14] MEDS: polyethylene glycoL POWDER 17 GM (MIRALAX) PACK PO SCH (19:39)
--- NOTE | 2021-03-14 21:31 | Diagnostic Imaging Report ---
INDICATION: Left thumb injury. 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 There are no acute fractures or dislocations. The joint spaces appear preserved. Soft tissues unremarkable. IMPRESSION: 1. No acute process. Dictated by: Dictated on workstation # [id number]
[2021-03-14 23:51] VITALS: BP 136/66
[2021-03-15] VITALS (9 sets, daily range): BP systolic 110–150; BP diastolic 56–84
[2021-03-15] MEDS: NS IV 1000 ML 1,000 ML IV SCH ×2 (01:10→08:11)
[2021-03-15] MEDS ORDERED: VANCOMYCIN 1500 MG/NS 500 ML IVPB IV SCH ×2 (05:00)
[2021-03-15 05:28] LABS: BASOPHILS # (AUTO) 0.1 10^3/uL (0.0-0.1); BASOPHILS % (AUTO) 1 % (0-10); EOSINOPHILS % (AUTO) 0 % (0-10); HEMATOCRIT 43 % (40-54); HEMOGLOBIN 14.7 g/dL (13.3-17.7); LYMPHOCYTES # (AUTO) 1.4 10^3/uL (1.0-4.0); LYMPHOCYTES % (AUTO) 12 % (12-44); MEAN CORPUSCULAR HEMOGLOBIN 31 pg (25-34); MEAN CORPUSCULAR HGB CONC 34 g/dL (32-36); MEAN CORPUSCULAR VOLUME 89 fL (80-99); MEAN PLATELET VOLUME 10.7 fL (9.0-12.2); MONOCYTES # (AUTO) 1.2 10^3/uL (0.0-1.0); MONOCYTES % (AUTO) 10 % (0-12); NEUTROPHILS % (AUTO) 77 % (42-75); PLATELET COUNT 189 10^3/uL (130-400); WHITE BLOOD COUNT 11.6 10^3/uL (4.3-11.0)
[2021-03-15 05:43] LABS: ALBUMIN 3.8 GM/DL (3.2-4.5); CHLORIDE 108 MMOL/L (98-107); POTASSIUM 3.9 MMOL/L (3.6-5.0); SODIUM 140 MMOL/L (135-145)
[2021-03-15 05:44] LABS: CALCIUM 8.6 MG/DL (8.5-10.1)
[2021-03-15 05:45] LABS: GLUCOSE 128 MG/DL (70-105)
[2021-03-15 05:46] LABS: TOTAL PROTEIN 6.7 GM/DL (6.4-8.2)
[2021-03-15 05:47] LABS: CARBON DIOXIDE 22 MMOL/L (21-32)
[2021-03-15 05:48] LABS: BILIRUBIN,TOTAL 0.7 MG/DL (0.1-1.0)
[2021-03-15 05:49] LABS: ALKALINE PHOSPHATASE 62 U/L (40-136); CREATININE SERUM 0.91 MG/DL (0.60-1.30); GFR ESTIMATED > 60
[2021-03-15 05:50] LABS: BUN/CREATININE RATIO 12
[2021-03-15 05:52] LABS: ALANINE AMINOTRANSFERASE 27 U/L (0-55)
[2021-03-15] MEDS: polyethylene glycoL POWDER 17 GM (MIRALAX) PACK PO SCH (08:13)
[2021-03-15] MEDS: SENNA W/DOCUSATE (SENOKOT S) TABLET PO SCH (08:13)
--- NOTE | 2021-03-15 08:50 | Progress Note - Surgery ---
CHAPIN BARBER MED STUDENT 03/15/21 0850: Subjective Date Seen by a Provider: Mar 15, 2021 Time Seen by a Provider: 08:00 Subjective/Events-last exam Patient is 50 year old male being followed for cellulitis with abscess formation on his midline lower back. He reports some fever and chills or over night, but reports since waking up this morning he has not felt any. He reports he does not "feel much different" from yesterday. He has not eaten since midnight. His last bowel movement was yesterday afternoon. He is urinating with out difficulty. He is ambulating with out difficulty. He states there has been no improvement in his pain of the lesion since yesterday, but it is tolerable and has not required narcotics to manage. Review of Systems General: Chills, Night Sweats; No Fatigue HEENT: No Head Aches, No Visual Changes Pulmonary: No Dyspnea, No Cough Cardiovascular: No: Chest Pain, Palpitations Gastrointestinal: No: Nausea, Vomiting Genitourinary: No Dysuria, No Frequency Musculoskeletal: arm pain (Left thumb) Neurological: No: Weakness, Numbness, Change in speech Focused Exam Lactate Level 03/14/21 16:10: Lactic Acid Level 1.11 Objective Exam Vital Signs Date Time Temp Pulse Resp B/P (MAP) Pulse Ox O2 Delivery O2 Flow Rate FiO2 03/15/21 08:00 Room Air 03/15/21 07:00 94 03/15/21 04:40 38.3 104 18 150/84 (106) 97 Room Air 03/15/21 01:00 105 03/14/21 23:51 37.5 108 18 136/66 (89) 96 Room Air 03/14/21 20:33 Room Air 03/14/21 19:09 38.3 101 18 136/78 (97) 100 Room Air 03/14/21 19:00 108 03/14/21 18:42 Room Air 03/14/21 17:20 37.7 115 98 21 03/14/21 17:00 124 03/14/21 16:07 37.7 110 18 150/82 (104) 96 Room Air I & O 03/15/21 07:00 Intake Total 270 ml Balance 270 ml Capillary Refill : General Appearance: No Apparent Distress, WD/WN HEENT: No Scleral Icterus (L), No Scleral Icterus (R) Neck: Full Range of Motion, Supple Respiratory: Chest Non Tender, Lungs Clear, Normal Breath Sounds, No Accessory Muscle Use, No Respiratory Distress Cardiovascular: Regular Rate, Rhythm, No Murmur, Normal Peripheral Pulses Peripheral Pulses: 2+ Radial Pulses (R), 2+ Radial Pulses (L) Gastrointestinal: normal bowel sounds, non tender, soft, no organomegaly, no pulsatile mass Extremity: Normal Capillary Refill, Normal Inspection, No Pedal Edema Neurologic/Psychiatric: Alert, Oriented x3, Normal Mood/Affect Skin: Other ( erythematous pustule located on the lower back midline, with large comedone approx 1 cm in diameter with purlent, foul smelling fluid draining, 2 small comedones. Induration, erythematous lesion that is approximately 10 cm in diameter in dimension. Appears to have grown since yesterday in the super right lateral plane. ) Lymphatic: No Adenopathy (neck, axilla, groin) Results Lab Laboratory Tests 03/14/21 16:10: White Blood Count 11.7H, Red Blood Count 5.40, Hemoglobin 16.5, Hematocrit 47, Mean Corpuscular Volume 87, Mean Corpuscular Hemoglobin 31, Mean Corpuscular Hemoglobin Concent 35, Red Cell Distribution Width 12.9, Platelet Count 205, Mean Platelet Volume 10.3, Immature Granulocyte % (Auto) 0, Neutrophils (%) (Auto) 79H, Lymphocytes (%) (Auto) 13, Monocytes (%) (Auto) 8, Eosinophils (%) (Auto) 0, Basophils (%) (Auto) 0, Neutrophils # (Auto) 9.2H, Lymphocytes # (Auto) 1.5, Monocytes # (Auto) 0.9, Eosinophils # (Auto) 0.0, Basophils # (Auto) 0.1, Immature Granulocyte # (Auto) 0.0, Sodium Level 137, Potassium Level 3.7, Chloride Level 101, Carbon Dioxide Level 24, Anion Gap 12, Blood Urea Nitrogen 14, Creatinine 1.05, Estimat Glomerular Filtration Rate > 60, BUN/Creatinine Ratio 13, Glucose Level 123H, Lactic Acid Level 1.11, Calcium Level 10.0, Corrected Calcium , Total Bilirubin 0.6, Aspartate Amino Transf (AST/SGOT) 25, Alanine Aminotransferase (ALT/SGPT) 40, Alkaline Phosphatase 69, C-Reactive Protein High Sensitivity 3.22H, Total Protein 8.5H, Albumin 4.7H, Procalcitonin 0.04 03/14/21 21:20: Influenza Type A (RT-PCR) Not Detected, Influenza Type B (RT-PCR) Not Detected, SARS-CoV-2 RNA (RT-PCR) Not Detected 03/15/21 04:50: White Blood Count 11.6H, Red Blood Count 4.82, Hemoglobin 14.7, Hematocrit 43, Mean Corpuscular Volume 89, Mean Corpuscular Hemoglobin 31, Mean Corpuscular Hemoglobin Concent 34, Red Cell Distribution Width 12.8, Platelet Count 189, Mean Platelet Volume 10.7, Immature Granulocyte % (Auto) 0, Neutrophils (%) (Auto) 77H, Lymphocytes (%) (Auto) 12, Monocytes (%) (Auto) 10, Eosinophils (%) (Auto) 0, Basophils (%) (Auto) 1, Neutrophils # (Auto) 9.0H, Lymphocytes # (Auto) 1.4, Monocytes # (Auto) 1.2H, Eosinophils # (Auto) 0.0, Basophils # (Auto) 0.1, Immature Granulocyte # (Auto) 0.0, Sodium Level 140, Potassium Level 3.9, Chloride Level 108H, Carbon Dioxide Level 22, Anion Gap 10, Blood Urea Nitrogen 11, Creatinine 0.91, Estimat Glomerular Filtration Rate > 60, BUN/Creatinine Ratio 12, Glucose Level 128H, Calcium Level 8.6, Corrected Calcium 8.8, Total Bilirubin 0.7, Aspartate Amino Transf (AST/SGOT) 15, Alanine Aminotransferase (ALT/SGPT) 27, Alkaline Phosphatase 62, Total Protein 6.7, A lbumin 3.8, Procalcitonin 0.05 Assessment/Plan Assessment/Plan Assessment/Plan Abscess/Cellulitis Lower Back 03/14 -plan is IV fluids, IV ABX, pain control, pt ate today and therefore cannot do surgery today. I gave pt the option of surgery at bedside, in the OR, or even waiting til the morning to recheck and may not need to do surgery. He wants to wait til the am, but is leaning toward I&D 03/15 - plan is to take to OR today for incision and drainage of lesion. Clinical Quality Measures DVT/VTE Risk/Contraindication: Contraindications-Pharm: Other *list below* Other: or CORBIN SANCHEZ DO 03/15/21 0948: Subjective Time Seen by a Provider: 09:42 Subjective/Events-last exam Pt seen and examined, states it is draining more. He thinks pain is the same. Review of Systems General: Chills, Night Sweats; No Fatigue HEENT: No Head Aches, No Visual Changes Pulmonary: No Dyspnea, No Cough Cardiovascular: No: Chest Pain, Palpitations Gastrointestinal: No: Nausea, Vomiting Musculoskeletal: arm pain (Left thumb) Objective Exam General Appearance: No Apparent Distress, WD/WN Respiratory: Lungs Clear, Normal Breath Sounds, No Accessory Muscle Use, No Respiratory Distress Cardiovascular: Regular Rate, Rhythm, No Murmur Gastrointestinal: soft, no organomegaly Skin: Other ( erythematous pustule located on the lower back midline, with large comedone approx 1 cm in diameter with purlent, foul smelling fluid draining, 2 small comedones. Induration, erythematous lesion that is approximately 10 cm in diameter in dimension. Appears to have grown since yesterday in the super right lateral plane. ) Assessment/Plan Assessment/Plan Assessment/Plan Abscess/Cellulitis - Lower back plan to OR for I&D with possible debridement and packing. All questions answered to pt satisfaction. Supervisory-Addendum Brief Verification & Attestation Participated in pt care: history, MDM, physical Personally performed: exam, history, MDM, supervision of care Care discussed with: Medical Student Procedures: n/a Verification and Attestation of Medical Student E/M Service A medical student performed and documented this service. I then reviewed and verified all information documented by the medical student and made modifications to such information, when appropriate. I personally performed a physical exam, medical decision making and then discussed any differences between the notes and made revisions as necessary to create one note. Corbin Sanchez , 03/15/21 , 09:48 CHAPIN BARBER MED STUDENT Mar 15, 2021 08:50 CORBIN SANCHEZ DO Mar 15, 2021 09:48
[2021-03-15] MEDS ORDERED: LORATADINE (CLARITIN) 10 MG TAB PO SCH (09:00)
--- NOTE | 2021-03-15 10:09 | History & Physical ---
History of Present Illness HPI/Chief Complaint Chief complaint: Infected cyst on lower back History of present illness: This is a 50-year-old male who presented to my office yesterday afternoon with lower back pain with fever and chills. Patient reports he had had a cyst on his lower back for many years since he fell 14 years ago. I assessed the area and found to have severe cellulitis with abscess formation with fever and SIRS. Patient was directly admitted to the hospital for IV fluids and IV antibiotics and Dr. Sanchez was consulted. Pain medication was maintained and he underwent incision and drainage this morning with packing. Cardiology was consulted for history of atrial fibrillation. Source: patient Exam Limitations: no limitations Date Seen 03/15/21 Time Seen by a Provider: 09:00 Attending Physician Liza Daniels DO PCP Liza Daniels DO Referring Physician Date of Admission Mar 14, 2021 at 15:43 Home Medications & Allergies Home Medications Reviewed patient Home Medication Reconciliation performed by pharmacy medication reconciliations prosthetics technician and/or nursing. Patients Allergies have been reviewed. Allergies Allergies Coded Allergies Iodinated Contrast Media (Unverified Adverse Reaction, Mild, RASH, 07/30/07) PT STATED ALLERGY TO "IV CONTRAST". STATED REACTION WAS A RASH. Uncoded Allergies ENVIRONMENTAL ( Allergy, Mild, 08/29/08) Past Nuoltln-[id number] Hx Past Med/Social Hx: Reviewed Nursing Past Med/Soc Hx, Reviewed and Corrections made Patient Social History Marrital Status: Employed/Student: employed Alcohol Use: Occasionally Uses Smoking Status: Never a Smoker Recent Foreign Travel: No Contact w/other who traveled: No Immunizations Up To Date Tetanus Booster (TDap): Less than 5yrs Pediatric: Yes Seasonal Allergies Seasonal Allergies: Yes Past Medical History Surgeries: Abdominal, Orthopedic Cardiac: Atrial Fibrillation, Hypertension Reproductive: No Sexually Transmitted Disease: No Skin/Integumentary: Recent Skin Changes History of Blood Disorders: No Family History Cardiovascular disease uncle, Onset:Unknown maternal gpa, , Age:50's - 60, Onset:Unknown FH: prostate cancer 19 FATHER, Onset:Unknown Heart Disease (uncle), Cancer (father - prostate) Review of Systems Constitutional: see HPI, fever, malaise, weakness Physical Exam Physical Exam Vital Signs Vital Signs - First Documented 03/14/21 03/14/21 03/15/21 16:07 17:20 10:31 Temp 37.7 Pulse 110 Resp 18 B/P (MAP) 150/82 (104) Pulse Ox 96 O2 Delivery Room Air O2 Flow Rate 10 FiO2 21 Capillary Refill : Height, Weight, BMI Height: 5'6.00" Weight: 250lbs. oz. [id number]; 36.13 BMI Method:Estimated General Appearance: No Apparent Distress, WD/WN Eyes: Bilateral Eye Normal Inspection, Bilateral Eye PERRL, Bilateral Eye EOMI HEENT: No Scleral Icterus (L), No Scleral Icterus (R) Neck: Full Range of Motion, Supple Respiratory: Lungs Clear, Normal Breath Sounds, No Accessory Muscle Use, No Respiratory Distress Cardiovascular: Regular Rate, Rhythm, No Murmur Extremity: Normal Capillary Refill, Normal Inspection, No Pedal Edema Neurologic/Psychiatric: Alert, Oriented x3, Normal Mood/Affect Skin: Other ( erythematous pustule located on the lower back midline, with large comedone approx 1 cm in diameter with purlent, foul smelling fluid draining, 2 small comedones. Induration, erythematous lesion that is approximately 10 cm in diameter in dimension. Appears to have grown since yesterday in the super right lateral plane. ) Lymphatic: No Adenopathy (neck, axilla, groin) Results Results/Procedures Labs Laboratory Tests 03/14/21 16:10 03/15/21 04:50 Patient resulted labs reviewed. Assessment/Plan Admission Diagnosis Assessment: Infected epidermal cyst of lower back with abscess and cellulitis with SIRS History of atrial fibrillation Hypertension Noncompliance with meds Histamine reaction Plan: IV antibiotics Status post incision and drainage Pain control Packing Admission Status: Observation Diagnosis/Problems Diagnosis/Problems (1) SIRS (systemic inflammatory response syndrome) (2) Infected cyst of skin (3) Abscess (4) Atrial fibrillation Clinical Quality Measures DVT/VTE Risk/Contraindication: Contraindications-Pharm: Other *list below* Other: or LIZA DANIELS DO Mar 15, 2021 10:09
--- NOTE | 2021-03-15 10:40 | Anesthesia-General Post-Op ---
General Patient Condition Mental Status/LOC: Same as Preop Cardiovascular: Satisfactory Nausea/Vomiting: Absent Respiratory: Satisfactory Pain: Controlled Complications: Absent Post Op Complications Complications None Follow Up Care/Instructions Patient Instructions None needed. Anesthesia/Patient Condition Patient Condition Patient is doing well, no complaints, stable vital signs, no apparent adverse anesthesia problems. No complications reported per nursing. OLEG THORNE CRNA Mar 15, 2021 10:40
[2021-03-15] MEDS ORDERED: ONDANSETRON 4 MG/2 ML (SDV) Z0FRAN IVP PRN (10:45)
[2021-03-15] MEDS ORDERED: morphine INJ 10 MG/ML 1ML (SYR OR VIAL) IVP ONE (10:45)
--- NOTE | 2021-03-15 12:06 | Progress Note-Post Operative ---
Post-Operative Progess Note Surgeon (s)/Equipment Associate (s) Surgeon STEWART SMILEY DO Equipment Associate: CATARINO Dubon Pre-Operative Diagnosis lower back abscess Post-Operative Diagnosis same plus back mass Procedure & Operative Findings Date of Procedure 03/15/21 Procedure Performed/Findings 1. I&D of lower back mass, with packing 2. Excision of back mass Anesthesia Type GET Estimated Blood Loss Estimated blood loss (mL): less than 10ml Specimens/Packing Specimens Removed wound culture back mass STEWART SMILEY DO Mar 15, 2021 12:06
[2021-03-15] MEDS ORDERED: OXC5T PO (12:33)
[2021-03-15] MEDS ORDERED: CEPH500T PO (12:33)
--- NOTE | 2021-03-15 12:35 | Discharge Summary ---
Diagnosis/Chief Complaint Date of Admission Mar 14, 2021 at 15:43 Date of Discharge Discharge Date: Mar 15, 2021 Discharge Diagnosis Infected epidermal cyst of the lower back with SIRS History of atrial fibrillation Discharge Summary Discharge Physical Examination Allergies: Coded Allergies: Iodinated Contrast Media (Unverified Adverse Reaction, Mild, RASH, 1 09/29/06) PT STATED ALLERGY TO "IV CONTRAST". STATED REACTION WAS A RASH. Uncoded Allergies: ENVIRONMENTAL (Allergy, Mild, 08/29/08) Vitals & I&Os Vital Signs Date Time Temp Pulse Resp B/P (MAP) Pulse Ox O2 Delivery O2 Flow Rate FiO2 03/15/21 13:55 03/15/21 12:00 36.1 88 18 95 Room Air 03/15/21 11:00 6 03/14/21 17:20 21 General Appearance: Alert, Oriented X3, Cooperative Respiratory: Clear to Auscultation Cardiovascular: Regular Rate Hospital Course Was the Problem List Reviewed?: Yes Patient has short hospital course he was admitted for SIRS covered with broad-spectrum antibiotics for infected epidermal cyst of the lower back. Dr. Sanchez consulted and performed I&D in the operating room. Patient will pack the area daily and will have close follow-up with me and Dr. Sanchez. Labs (last 24 hrs) Laboratory Tests 03/14/21 16:10: White Blood Count 11.7H, Red Blood Count 5.40, Hemoglobin 16.5, Hematocrit 47, Mean Corpuscular Volume 87, Mean Corpuscular Hemoglobin 31, Mean Corpuscular Hemoglobin Concent 35, Red Cell Distribution Width 12.9, Platelet Count 205, Mean Platelet Volume 10.3, Immature Granulocyte % (Auto) 0, Neutrophils (%) (Auto) 79H, Lymphocytes (%) (Auto) 13, Monocytes (%) (Auto) 8, Eosinophils (%) (Auto) 0, Basophils (%) (Auto) 0, Neutrophils # (Auto) 9.2H, Lymphocytes # (Auto) 1.5, Monocytes # (Auto) 0.9, Eosinophils # (Auto) 0.0, Basophils # (Auto) 0.1, Immature Granulocyte # (Auto) 0.0, Sodium Level 137, Potassium Level 3.7, Chloride Level 101, Carbon Dioxide Level 24, Anion Gap 12, Blood Urea Nitrogen 14, Creatinine 1.05, Estimat Glomerular Filtration Rate > 60, BUN/Creatinine Ratio 13, Glucose Level 123H, Lactic Acid Level 1.11, Calcium Level 10.0, Corrected Calcium , Total Bilirubin 0.6, Aspartate Amino Transf (AST/SGOT) 25, A lanine Aminotransferase (ALT/SGPT) 40, Alkaline Phosphatase 69, C-Reactive Protein High Sensitivity 3.22H, Total Protein 8.5H, Albumin 4.7H, Procalcitonin 0.04 03/14/21 21:20: Influenza Type A (RT-PCR) Not Detected, Influenza Type B (RT-PCR) Not Detected, SARS-CoV-2 RNA (RT-PCR) Not Detected 03/15/21 04:50: White Blood Count 11.6H, Red Blood Count 4.82, Hemoglobin 14.7, Hematocrit 43, Mean Corpuscular Volume 89, Mean Corpuscular Hemoglobin 31, Mean Corpuscular Hemoglobin Concent 34, Red Cell Distribution Width 12.8, Platelet Count 189, Mean Platelet Volume 10.7, Immature Granulocyte % (Auto) 0, Neutrophils (%) (Auto) 77H, Lymphocytes (%) (Auto) 12, Monocytes (%) (Auto) 10, Eosinophils (%) (Auto) 0, Basophils (%) (Auto) 1, Neutrophils # (Auto) 9.0H, Lymphocytes # (Auto) 1.4, Monocytes # (Auto) 1.2H, Eosinophils # (Auto) 0.0, Basophils # (Auto) 0.1, Immature Granulocyte # (Auto) 0.0, Sodium Level 140, Potassium Level 3.9, Chloride Level 108H, Carbon Dioxide Level 22, Anion Gap 10, Blood Urea Nitrogen 11, Creatinine 0.91, Estimat Glomerular Filtration Rate > 60, BUN/Creatinine Ratio 12, Glucose Level 128H, Calcium Level 8.6, Corrected Calcium 8.8, Total Bilirubin 0.7, Aspartate Amino Transf (AST/SGOT) 15, Alanine Aminotransferase (ALT/SGPT) 27, Alkaline Phosphatase 62, Total Protein 6.7, Albumin 3.8, Procalcitonin 0.05 Microbiology 03/14/21 MRSA Screen - Final, Complete MRSA not isolated 03/14/21 Blood Culture - Preliminary, Resulted No growth Pending Labs Microbiology Date/Time Source Procedure Growth Status 03/14/21 21:20 Nasal MRSA Screen - Final MRSA not isolated Complete 03/14/21 16:15 Peripheral Rt Hand Blood Culture - Preliminary No growth Resulted 03/14/21 16:10 Peripheral Rt Ac Blood Culture - Preliminary No growth Resulted Laboratory Tests 03/14/21 16:10: White Blood Count 11.7, Red Blood Count 5.40, Hemoglobin 16.5, Hematocrit 47, Mean Corpuscular Volume 87, Mean Corpuscular Hemoglobin 31, Mean Corpuscular Hemoglobin Concent 35, Red Cell Distribution Width 12.9, Platelet Count 205, Mean Platelet Volume 10.3, Immature Granulocyte % (Auto) 0, Neutrophils (%) (Auto) 79, Lymphocytes (%) (Auto) 13, Monocytes (%) (Auto) 8, Eosinophils (%) (Auto) 0, Basophils (%) (Auto) 0, Neutrophils # (Auto) 9.2, Lymphocytes # (Auto) 1.5, Monocytes # (Auto) 0.9, Eosinophils # (Auto) 0.0, Basophils # (Auto) 0.1, Immature Granulocyte # (Auto) 0.0, Sodium Level 137, Potassium Level 3.7, Chloride Level 101, Carbon Dioxide Level 24, Anion Gap 12, Blood Urea Nitrogen 14, Creatinine 1.05, Estimat Glomerular Filtration Rate > 60, BUN/Creatinine Ratio 13, Glucose Level 123, Lactic Acid Level 1.11, Calcium Level 10.0, Corrected Calcium , Total Bilirubin 0.6, Aspartate Amino Transf (AST/SGOT) 25, Alanine Aminotransferase (ALT/SGPT) 40, Alkaline Phosphatase 69, C-Reactive Protein High Sensitivity 3.22, Total Protein 8.5, Albumin 4.7, Procalcitonin 0.04 03/14/21 21:20: Influenza Type A (RT-PCR) Not Detected, Influenza Type B (RT-PCR) Not Detected, SARS-CoV-2 RNA (RT-PCR) Not Detected 03/15/21 04:50: White Blood Count 11.6, Red Blood Count 4.82, Hemoglobin 14.7, Hematocrit 43, Mean Corpuscular Volume 89, Mean Corpuscular Hemoglobin 31, Mean Corpuscular Hemoglobin Concent 34, Red Cell Distribution Width 12.8, Platelet Count 189, Mean Platelet Volume 10.7, Immature Granulocyte % (Auto) 0, Neutrophils (%) (Auto) 77, Lymphocytes (%) (Auto) 12, Monocytes (%) (Auto) 10, Eosinophils (%) (Auto) 0, Basophils (%) (Auto) 1, Neutrophils # (Auto) 9.0, Lymphocytes # (Auto) 1.4, Monocytes # (Auto) 1.2, Eosinophils # (Auto) 0.0, Basophils # (Auto) 0.1, Immature Granulocyte # (Auto) 0.0, Sodium Level 140, Potassium Level 3.9, Chloride Level 108, Carbon Dioxide Level 22, Anion Gap 10, Blood Urea Nitrogen 11, Creatinine 0.91, Estimat Glomerular Filtration Rate > 60, BUN/Creatinine Ratio 12, Glucose Level 128, Calcium Level 8.6, Corrected Calcium 8.8, Total Bilirubin 0.7, Aspartate Amino Transf (AST/SGOT) 15, Alanine Aminotransferase (ALT/SGPT) 27, Alkaline Phosphatase 62, Total Protein 6.7, Albumin 3.8, Procalcitonin 0.05 Discharge Home Medications: Active Scripts Active Cephalexin 500 Mg Tablet 500 Mg PO TID Oxyir Tablet (Oxycodone HCl) 5 Mg Tab 5 Mg PO Q4H PRN Reported Kelp (Iodine) 150 Mcg Tablet 150 Mcg PO DAILY Vitamin D3 (Cholecalciferol (Vitamin D3)) 25 Mcg Capsule 25 Mcg PO DAILY Fish Oil 1,000 mg Capsule ([place] 3 Polyunsat Fatty Acids) 1,000 Mg Cap 1,000 Mg PO DAILY Loratadine 10 Mg Tablet 10 Mg PO BID PRN Multivitamins (Multivitamin) 1 Each Tablet 1 Tab PO DAILY Instructions to patient/family Please see electronic discharge instructions given to patient. Clinical Quality Measures DVT/VTE Risk/Contraindication: Contraindications-Pharm: Other *list below* Other: or PATRICIA LEIGH DO Mar 15, 2021 12:35
--- NOTE | 2021-03-15 14:00 | Consultation-Cardiology ---
HPI-Cardiology Cardiology Consultation Date of Consultation 03/15/21 Date of Admission Time Seen by Provider: 13:57 HPI 50-year-old gentleman with a history of hypertension, hyperlipidemia, has history of paroxysmal atrial fibrillation, patient reported having an abscess on his back, was admitted to the hospital monitored. Denied any chest pain or shortness of breath. No palpitation. No syncope Home Medications & Allergies Allergies: Coded Allergies: Iodinated Contrast Media (Unverified Adverse Reaction, Mild, RASH, 07/30/07) PT STATED ALLERGY TO "IV CONTRAST". STATED REACTION WAS A RASH. Uncoded Allergies: ENVIRONMENTAL (Allergy, Mild, 08/29/08) Home Medication List Reviewed: Yes FNT-Ixcxgl-Imhyfd Hx Patient Social History Smoking Status: Never a Smoker Have you traveled recently?: No Alcohol Use?: Yes Immunizations Up To Date Tetanus Booster (TDap): Less than 5yrs Past Medical History Discussed will Family Medical History Significant Family History: Heart Disease (uncle), Cancer (father - prostate) Family History: Cardiovascular disease uncle, Onset:Unknown maternal gpa, , Age:50's - 60, Onset:Unknown FH: prostate cancer 19 FATHER, Onset:Unknown Review of Systems-General Review of Systems Constitutional: chills, fever (pt felt warm, did not take temp); No weakness EENTM: No hearing loss, No blurred vision, No mouth pain Respiratory: No cough, No dyspnea on exertion, No short of breath Cardiovascular: see HPI; No chest pain, No edema, No Hx of Intervention, No palpitations, No syncope, No vascular heart diseas, No other Gastrointestinal: abdominal pain (LLQ ); No constipation, No diarrhea Genitourinary: No dysuria, No frequency Musculoskeletal: back pain; No muscle pain, No muscle stiffness Skin: see HPI; No pruritus, No rash Psychiatric/Neurological: Denies Anxiety, Denies Depressed Reviewed Test Results Reviewed Test Results Lab Laboratory Tests Test 03/14/21 16:10 03/14/21 21:20 03/15/21 04:50 Range/Units White Blood Count 11.7 H 11.6 H 4.3-11.0 10^3/uL Red Blood Count 5.40 4.82 4.30-5.52 10^6/uL Hemoglobin 16.5 14.7 13.3-17.7 g/dL Hematocrit 47 43 40-54 % Mean Corpuscular Volume 87 89 80-99 fL Mean Corpuscular Hemoglobin 31 31 25-34 pg Mean Corpuscular Hemoglobin Concent 35 34 32-36 g/dL Red Cell Distribution Width 12.9 12.8 10.0-14.5 % Platelet Count 205 189 130-400 10^3/uL Mean Platelet Volume 10.3 10.7 9.0-12.2 fL Immature Granulocyte % (Auto) 0 0 % Neutrophils (%) (Auto) 79 H 77 H 42-75 % Lymphocytes (%) (Auto) 13 12 12-44 % Monocytes (%) (Auto) 8 10 0-12 % Eosinophils (%) (Auto) 0 0 0-10 % Basophils (%) (Auto) 0 1 0-10 % Neutrophils # (Auto) 9.2 H 9.0 H 1.8-7.8 10^3/uL Lymphocytes # (Auto) 1.5 1.4 1.0-4.0 10^3/uL Monocytes # (Auto) 0.9 1.2 H 0.0-1.0 10^3/uL Eosinophils # (Auto) 0.0 0.0 0.0-0.3 10^3/uL Basophils # (Auto) 0.1 0.1 0.0-0.1 10^3/uL Immature Granulocyte # (Auto) 0.0 0.0 0.0-0.1 10^3/uL Sodium Level 137 140 135-145 MMOL/L Potassium Level 3.7 3.9 3.6-5.0 MMOL/L Chloride Level 101 108 H 98-107 MMOL/L Carbon Dioxide Level 24 22 21-32 MMOL/L Anion Gap 12 10 5-14 MMOL/L Blood Urea Nitrogen 14 11 7-18 MG/DL Creatinine 1.05 0.91 0.60-1.30 MG/DL Estimat Glomerular Filtration Rate > 60 > 60 BUN/Creatinine Ratio 13 12 Glucose Level 123 H 128 H 70-105 MG/DL Lactic Acid Level 1.11 0.50-2.00 MMOL/L Calcium Level 10.0 8.6 8.5-10.1 MG/DL Corrected Calcium 8.8 8.5-10.1 MG/DL Total Bilirubin 0.6 0.7 0.1-1.0 MG/DL Aspartate Amino Transf (AST/SGOT) 25 15 5-34 U/L Alanine Aminotransferase (ALT/SGPT) 40 27 0-55 U/L Alkaline Phosphatase 69 62 40-136 U/L C-Reactive Protein High Sensitivity 3.22 H 0.00-0.50 MG/DL Total Protein 8.5 H 6.7 6.4-8.2 GM/DL Albumin 4.7 H 3.8 3.2-4.5 GM/DL Procalcitonin 0.04 0.05 <0.10 NG/ML Influenza Type A (RT-PCR) Not Detected Not Detecte Influenza Type B (RT-PCR) Not Detected Not Detecte SARS-CoV-2 RNA (RT-PCR) Not Detected Not Detecte Physical Exam Physical Exam Vital Signs Vital Signs - First Documented 03/14/21 03/14/21 03/15/21 16:07 17:20 10:31 Temp 37.7 Pulse 110 Resp 18 B/P (MAP) 150/82 (104) Pulse Ox 96 O2 Delivery Room Air O2 Flow Rate 10 FiO2 21 Capillary Refill : Less Than 3 Seconds Height, Weight, BMI Height: 5'6.00" Weight: 250lbs. oz. [id number]; 36.13 BMI Method:Estimated General Appearance: No Apparent Distress, WD/WN Eyes: Bilateral Eye Normal Inspection, Bilateral Eye PERRL, Bilateral Eye EOMI HEENT: No Scleral Icterus (L), No Scleral Icterus (R) Neck: Full Range of Motion, Supple Respiratory: Lungs Clear, Normal Breath Sounds, No Accessory Muscle Use, No Respiratory Distress Cardiovascular: Regular Rate, Rhythm, No Murmur Extremity: Normal Capillary Refill, Normal Inspection, No Pedal Edema Neurologic/Psychiatric: Alert, Oriented x3, Normal Mood/Affect Skin: Other ( erythematous pustule located on the lower back midline, with large comedone approx 1 cm in diameter with purlent, foul smelling fluid draining, 2 small comedones. Induration, erythematous lesion that is approximately 10 cm in diameter in dimension. Appears to have grown since yesterday in the super right lateral plane. ) Lymphatic: No Adenopathy (neck, axilla, groin) A/P-Cardiology Admission Diagnosis Paroxysmal atrial fibrillation Hypertension Assessment/Plan Abscess, status post I&D done with Dr. Sanchez History of paroxysmal atrial fibrillation, no further episodes were reported. Followed by Dr. King History of stress test done in September 2019 showing no significant ischemia or infarction. Continue to monitor Hypertension, monitor blood pressure Okay for discharge from cardiology standpoint Clinical Quality Measures DVT/VTE Risk/Contraindication: Contraindications-Pharm: Other *list below* Other: or MODESTA EUGENE MD Mar 15, 2021 14:00
--- NOTE | 2021-03-15 15:51 | OPERATIVE REPORT ---
DATE OF SERVICE: PREOPERATIVE DIAGNOSIS: Lower back abscess. POSTOPERATIVE DIAGNOSES: Lower back abscess, back mass. SURGEON: Corbin Sanchez DO ACCESS REGISTRAR: Junior Goodwin, MS4. ANESTHESIA: General endotracheal tube. SPECIMENS: 1. Wound culture. 2. Back mass. BLOOD LOSS: Less than 10 mL. FLUIDS: Per anesthesia. POSTOPERATIVE CONDITION: Stable. INDICATION FOR PROCEDURE: The patient is a 50-year-old male, who has an abscess on his back started to get some purulent drainage, large area of erythema, states he had fallen in this area 14 years ago, thought it was something due to that. FINDINGS: The patient had an abscess cellulitis and looked like he had a back mass, looked like it was probably an infected sebaceous or epidermal inclusion cyst. This was removed. The cyst vanegas were removed. PROCEDURE NOTE: After informed consent was obtained, the patient was brought to the operating room, placed on table in right lateral decubitus position. He was sterilely prepped and draped in normal fashion. First infiltrated around this area with local lidocaine and then once we made an incision with #15 blade, carried down through the skin into subcutaneous tissue, immediately got out some whitish fluid; possible purulent fluid. This was cultured. We then opened this area up bluntly and then did some rough debridement with the lap sponges. Once we had freed this up, then able to see mass/cyst and elected to remove the cyst vanegas grasping this with a hemostat and then cutting the cyst vanegas out with sharp dissection and removing this back mass, passed this off table, Again debrided roughly, did not see any necrotic tissue. Copiously irrigated with normal saline and then elected to pack this incision open with half inch iodoform packing about half of the bottle was used. Area was then cleaned and dried. A dressing placed. The patient tolerated the procedure. Sponge, instrument and needle count correct at the end of the case. Job ID: [id number] DocumentID: [id number] Dictated Date: 03/15/2021 12:13:13 Planer Setup Operator Date: 03/15/2021 15:51:20 Dictated By: CORBIN SANCHEZ DO MTDD
[2021-03-16] MEDS ORDERED: TROUGH ORDER-PHARMACY XX NR (04:00)
== END 2021-03-15 13:55 | disposition home or self-care (01) | DRG 572 ==
LOC: UNDOADMOB 15:43 → 4TH 15:43 → INTOOBSV 15:43 → EDSTATUS 16:38 → UNDODISOB 03-15 13:55
PROVIDERS: ADMIT Internal Medicine; ATTEND Internal Medicine
PROC: 0JB70ZZ Excision of Back Subcutaneous Tissue and Fascia, Open Approach (ICD-10-PCS; principal; 2021-03-15 09:46)
DX: L02.212 Cutaneous abscess of back [any part, except buttock and flank] (principal); L03.312 Cellulitis of back [any part except buttock and flank]; L72.8 Other follicular cysts of the skin and subcutaneous tissue; I48.0 Paroxysmal atrial fibrillation; I10 Essential (primary) hypertension; Z91.14 Patient's other noncompliance with medication regimen; E78.5 Hyperlipidemia, unspecified; Z20.822 Contact with and (suspected) exposure to COVID-19
CPT/HCPCS: 36415; 73120; 80053; 83605; 84145; 85025; 86141; 87040; 87070; 87075; 87076; 87077; 87081; 87205; 87636; 88304; 93005

== ENCOUNTER → 2021-05-15 | Outpatient (CLI) | payer BC ==
[~2021-05-15] MED LIST changes: +CEPH500T PO; +CHOL100048 PO; +IODI150T PO; +OXC5T PO
== END ==
LOC: PREOP 08:10
PROVIDERS: ATTEND Surgery
DX: Z01.812 Encounter for preprocedural laboratory examination (principal); K42.9 Umbilical hernia without obstruction or gangrene; Z20.822 Contact with and (suspected) exposure to COVID-19
CPT/HCPCS: 87635

== ENCOUNTER 2021-07-21 18:24 | Emergency (ER) | payer BC ==
[~2021-07-21] VITALS: Ht 165 cm; Wt 100.0 kg
[2021-07-21] MEDS ORDERED: methylPREDNISolone 125 MG (Solu-MEDROL) VIAL IV STA (18:37)
[2021-07-21] MEDS ORDERED: diphenhydrAMINE 50 MG/ML INJ (BENADRYL) IV STA (18:37)
[2021-07-21] MEDS ORDERED: FAMOTIDINE 20MG/2ML IV (PEPCID) IV STA (18:37)
[2021-07-21 18:44] LABS: BASOPHILS % (AUTO) 0 % (0-10); EOSINOPHILS # (AUTO) 0.2 10^3/uL (0.0-0.3); EOSINOPHILS % (AUTO) 2 % (0-10); HEMATOCRIT 48 % (40-54); HEMOGLOBIN 16.8 g/dL (13.3-17.7); LYMPHOCYTES # (AUTO) 3.5 10^3/uL (1.0-4.0); LYMPHOCYTES % (AUTO) 36 % (12-44); MEAN CORPUSCULAR HEMOGLOBIN 31 pg (25-34); MEAN CORPUSCULAR HGB CONC 35 g/dL (32-36); MEAN CORPUSCULAR VOLUME 88 fL (80-99); MEAN PLATELET VOLUME 10.4 fL (9.0-12.2); MONOCYTES # (AUTO) 0.7 10^3/uL (0.0-1.0); MONOCYTES % (AUTO) 7 % (0-12); NEUTROPHILS # (AUTO) 5.3 10^3/uL (1.8-7.8); NEUTROPHILS % (AUTO) 55 % (42-75); PLATELET COUNT 243 10^3/uL (130-400); WHITE BLOOD COUNT 9.7 10^3/uL (4.3-11.0)
[2021-07-21] MEDS ORDERED: EPINEPHrine INJECTION 1 MG/ML AMP IM ONE (18:45)
[2021-07-21] MEDS ORDERED: NS IV 1000 ML 1,000 ML IV SCH (18:45)
[2021-07-21 19:02] LABS: ALBUMIN 4.6 GM/DL (3.2-4.5); CHLORIDE 106 MMOL/L (98-107); SODIUM 140 MMOL/L (135-145)
[2021-07-21 19:03] LABS: CALCIUM 9.6 MG/DL (8.5-10.1)
[2021-07-21 19:04] LABS: GLUCOSE 200 MG/DL (70-105)
[2021-07-21 19:05] LABS: TOTAL PROTEIN 7.9 GM/DL (6.4-8.2)
[2021-07-21 19:06] LABS: BILIRUBIN,TOTAL 0.4 MG/DL (0.1-1.0); CARBON DIOXIDE 19 MMOL/L (21-32); ERYTHROCYTE SEDIMENTATION RATE 1 MM/HR (0-30)
[2021-07-21 19:08] LABS: ALKALINE PHOSPHATASE 85 U/L (40-136); CREATININE SERUM 1.07 MG/DL (0.60-1.30); GFR ESTIMATED 72
[2021-07-21 19:09] LABS: BUN/CREATININE RATIO 16
[2021-07-21 19:11] LABS: ALANINE AMINOTRANSFERASE 56 U/L (0-55)
[2021-07-21] MEDS ORDERED: PRD20T PO (19:24)
[2021-07-21] MEDS ORDERED: FAMO40TA72 PO (19:24)
--- NOTE | 2021-07-21 19:24 | ED General ---
General Chief Complaint: Allergic Reaction Stated Complaint: ALLERGIC REACTION/FACIAL REDNESS/HEART RACING Nursing Triage Note: PT AMB TO RM 4 W REDNESS ALL OVER BODY. 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 REPORTS THIS HAS HAPPENED A FEW TIMES IN THE PAST D/T BLACK MOLD IN HIS HOUSE APPROX 5 YEARS AGO. PT A&OX4. Allergies and Home Medications Allergies Coded Allergies: Iodinated Contrast Media (Unverified Adverse Reaction, Mild, RASH, 07/30/07) PT STATED ALLERGY TO "IV CONTRAST". STATED REACTION WAS A RASH. Uncoded Allergies: ENVIRONMENTAL (Allergy, Mild, 08/29/08) Patient Home Medication List Cephalexin (Cephalexin) 500 Mg Tablet, 500 MG PO TID Prescribed by: PATRICIA LEIGH on 03/15/21 1233 Cholecalciferol (Vitamin D3) (Vitamin D3) 25 Mcg Capsule, 25 MCG PO DAILY, (Reported) Entered as Reported by: SEBASTIÁN SWEET on 03/14/21 155 Famotidine (Pepcid) 40 Mg Tablet, 40 MG PO DAILY Prescribed by: RIAZ CAMERON on 07/21/211923 Iodine (Kelp) 150 Mcg Tablet, 150 MCG PO DAILY, (Reported) Entered as Reported by: SEBASTIÁN SWEET on 03/14/211557 Loratadine (Loratadine) 10 Mg Tablet, 10 MG PO BID PRN for ALLERGIES, (Reported) Entered as Reported by: NITO AMOR on 06/29/19858 Multivitamin (Multivitamins) 1 Each Tablet, 1 TAB PO DAILY, (Reported) Entered as Reported by: NITO AMOR on 06/29/19858 [place] 3 Polyunsat Fatty Acids (Fish Oil 1,000 mg Capsule) 1,000 Mg Cap, 1,000 MG PO DAILY, (Reported) Entered as Reported by: NITO AMOR on 06/29/19858 Oxycodone Hcl (Oxyir Tablet) 5 Mg Tab, 5 MG PO Q4H PRN for PAIN-SEVERE (8-10) Prescribed by: PATRICIA LEIGH on 03/15/21 1234 Prednisone (Prednisone) 20 Mg Tab, 40 MG PO DAILY Prescribed by: RIAZ CAMERON on 07/21/21 192 Past Eomxyaz-Opfkdi-Rputct Hx Patient Social History Tobacco Use?: No Use of E-Cig and/or Vaping dev: No Substance use?: No Alcohol Use?: No Immunizations Up To Date Tetanus Booster (TDap): Less than 5yrs PED Vaccines UTD: Yes Seasonal Allergies Seasonal Allergies: Yes Past Medical History Surgeries: Yes (umbillical hernia repair, 2X left knee scopes) Abdominal, Orthopedic Respiratory: No Cardiac: Yes Atrial Fibrillation, Hypertension Neurological: No Reproductive Disorders: No Sexually Transmitted Disease: No Genitourinary: No Gastrointestinal: No Musculoskeletal: No Endocrine: No Psychosocial: No Recent Skin Changes Blood Disorders: No Family Medical History Cardiovascular disease uncle, Onset:Unknown maternal gpa, , Age:50's - 60, Onset:Unknown FH: prostate cancer 19 FATHER, Onset:Unknown Heart Disease, Cancer Physical Exam Vital Signs Vital Signs - First Documented 07/21/21 18:29 Temp 36.1 Pulse 130 Resp 26 B/P (MAP) 149/107 (121) Pulse Ox 95 O2 Delivery Room Air Capillary Refill : Less Than 3 Seconds Height, Weight, BMI Height: 5'6.00" Weight: 250lbs. oz. 113.636284eo; 36.00 BMI Method:Estimated Progress/Results/Core Measures Suspected Sepsis SIRS Temperature: Pulse: 130 Respiratory Rate: 26 Laboratory Tests 07/21/21 18:35: White Blood Count 9.7 Blood Pressure 149 /107 Mean: 121 Laboratory Tests 07/21/21 18:35: Creatinine 1.07, Platelet Count 243, Total Bilirubin 0.4 Results/Orders Lab Results Laboratory Tests Test 07/21/21 18:35 Range/Units White Blood Count 9.7 4.3-11.0 10^3/uL Red Blood Count 5.47 4.30-5.52 10^6/uL Hemoglobin 16.8 13.3-17.7 g/dL Hematocrit 48 40-54 % Mean Corpuscular Volume 88 80-99 fL Mean Corpuscular Hemoglobin 31 25-34 pg Mean Corpuscular Hemoglobin Concent 35 32-36 g/dL Red Cell Distribution Width 12.9 10.0-14.5 % Platelet Count 243 130-400 10^3/uL Mean Platelet Volume 10.4 9.0-12.2 fL Immature Granulocyte % (Auto) 0 % Neutrophils (%) (Auto) 55 42-75 % Lymphocytes (%) (Auto) 36 12-44 % Monocytes (%) (Auto) 7 0-12 % Eosinophils (%) (Auto) 2 0-10 % Basophils (%) (Auto) 0 0-10 % Neutrophils # (Auto) 5.3 1.8-7.8 10^3/uL Lymphocytes # (Auto) 3.5 1.0-4.0 10^3/uL Monocytes # (Auto) 0.7 0.0-1.0 10^3/uL Eosinophils # (Auto) 0.2 0.0-0.3 10^3/uL Basophils # (Auto) 0.0 0.0-0.1 10^3/uL Immature Granulocyte # (Auto) 0.0 0.0-0.1 10^3/uL Erythrocyte Sedimentation Rate 1 0-30 MM/HR Sodium Level 140 135-145 MMOL/L Potassium Level 4.0 3.6-5.0 MMOL/L Chloride Level 106 98-107 MMOL/L Carbon Dioxide Level 19 L 21-32 MMOL/L Anion Gap 15 H 5-14 MMOL/L Blood Urea Nitrogen 17 7-18 MG/DL Creatinine 1.07 0.60-1.30 MG/DL Estimat Glomerular Filtration Rate 72 BUN/Creatinine Ratio 16 Glucose Level 200 H 70-105 MG/DL Calcium Level 9.6 8.5-10.1 MG/DL Corrected Calcium 8.5-10.1 MG/DL Total Bilirubin 0.4 0.1-1.0 MG/DL Aspartate Amino Transf (AST/SGOT) 34 5-34 U/L Alanine Aminotransferase (ALT/SGPT) 56 H 0-55 U/L Alkaline Phosphatase 85 40-136 U/L C-Reactive Protein High Sensitivity 0.19 0.00-0.50 MG/DL Total Protein 7.9 6.4-8.2 GM/DL Albumin 4.6 H 3.2-4.5 GM/DL Serum Alcohol < 10 <10 MG/DL My Orders Orders - RIAZ CAMERON DO Ed Iv/Invasive Line Start (07/21/21 18:37) Monitor-Rhythm Ecg Trace Only (07/21/21 18:37) Alcohol (07/21/21 18:37) Cbc With Automated Diff (07/21/21 18:37) Comprehensive Metabolic Panel (07/21/21 18:37) Hs C Reactive Protein (07/21/21 18:37) Erythrocyte Sedimentation Rate (07/21/21 18:37) Ed Iv/Invasive Line Start (07/21/21 18:37) Ns Iv 1000 Ml (Sodium Chloride 0.9%) (07/21/21 18:45) Famotidine Injection (Pepcid Injection) (07/21/21 18:37) Diphenhydramine Injection (Benadryl Inje (07/21/21 18:37) Methylprednisolone Sod Succ (Solu-Medrol (07/21/21 18:37) Epinephrine 1 Mg Injection (Adrenalin I (07/21/21 18:45) Medications Given in ED Current Medications Medications Dose Ordered Sig/Gucci Route Start Time Stop Time Status Last Admin Dose Admin Epinephrine HCl 0.3 mg ONCE ONCE IM 07/21/21 18:45 07/21/21 18:46 DC 07/21/21 18:47 0.3 MG Vital Signs/I&O 07/21/21 18:29 Temp 36.1 Pulse 130 Resp 26 B/P (MAP) 149/107 (121) Pulse Ox 95 O2 Delivery Room Air Capillary Refill : Less Than 3 Seconds Blood Pressure Mean: 121 Departure Impression Primary Impression: ALLERGIC REACTION OF UNKNOWN CAUSE Disposition: 01 HOME, SELF-CARE Condition: Improved Departure-Patient Inst. Decision time for Depature: 19:40 Referrals: PATRICIA LEIGH DO (PCP/Family) Primary Care Physician Patient Instructions: Allergic Reaction ED Add. Discharge Instructions: LOTS OF CLEAR LIQUIDS CLARITIN 10 MG IN AM, BENADRYL 50 MG IN PM NEEDED FOR RASH OR ITCHING OR SWELLING FOLLOW UP WITH DR. LEIGH TOMORROW IF SYMPTOMS STILL PRESENT, RETURN TO ER IF WORSE All discharge instructions reviewed with patient and/or family. Voiced understanding. Scripts Famotidine (Pepcid) 40 Mg Tablet 40 MG PO DAILY, #10 TAB Prov: RIAZ CAMERON DO 07/21/21 Prednisone (Prednisone) 20 Mg Tab 40 MG PO DAILY, #6 TAB 0 Refills Prov: MARIEL CAMERONA K 07/21/21 RIAZ CAMERON DO Jul 21, 2021 19:24
[2021-07-21 19:53] VITALS: BP 154/84
== END 2021-07-21 19:53 | disposition home or self-care (01) ==
LOC: EDUNIT# 18:24 → ER 18:26
DX: T78.40XA Allergy, unspecified, initial encounter (principal); I10 Essential (primary) hypertension
CPT/HCPCS: 80053; 85025; 85652; 86141; 93041; 99284; G0480; 36415; 80320; 96361; 96372; 96374; 96375

== ENCOUNTER 2023-04-29 05:36 | Outpatient (CLI) | payer BC ==
[~2023-04-29] VITALS: Ht 165.1 cm; Wt 102.1 kg
[~2023-04-29 05:36] MED LIST changes: +FAMO40TA72 PO
== END 2023-04-29 09:42 | disposition home or self-care (01) ==
LOC: PREOP 05:36
PROVIDERS: ATTEND Surgery
DX: Z01.818 Encounter for other preprocedural examination (principal)

== ENCOUNTER 2023-05-04 10:22 | Day surgery (SDC) | payer BC ==
[~2023-05-04] VITALS: Ht 165 cm; Wt 102.0 kg
[2023-05-04] MEDS ORDERED: LACTATED RINGERS 1,000 ML 1,000 ML IV STA (10:33)
[2023-05-04 10:48] VITALS: BP 105/58
--- NOTE | 2023-05-04 10:53 | Progress Note-Pre Operative ---
Pre-Operative Progress Note Date of Available H&P: Apr 21, 2023 Date H&P Reviewed: May 04, 2023 Time H&P Reviewed: 10:51 History & Physical: H&P Reviewed, Patient Examed, No changes noted Pre-Operative Diagnosis: Rectal bleed STEWART SMILEY DO May 04, 2023 10:53
[2023-05-04 12:24] VITALS: BP 87/48
[2023-05-04 12:30] VITALS: BP 87/48
--- NOTE | 2023-05-04 12:33 | Progress Note-Post Operative ---
Post-Operative Progess Note Surgeon (s)/Product Support Analyst (s) Surgeon STEWART SMILEY DO Product Support Analyst: CHERELLE Antoine Pre-Operative Diagnosis Rectal bleed Post-Operative Diagnosis Polyp diverticula int hemorrhoids ? anal fissure Procedure & Operative Findings Date of Procedure 05/04/23 Procedure Performed/Findings Colonoscopy with snare polypectomy PROCEDURE NOTE: After informed consent was obtained, the patient was brought to the endoscopy suite, placed in bed in left lateral decubitus position. He was administered IV sedation by the CITY PLANNING AIDE who then monitored his vitals the entire time, heart rate, blood pressure and pulse ox and the scope was inserted, pushed all the way to about 150 cm and pushed into the cecum, took a picture of appendiceal orifice and noted the ileocecal valve. I also saw a few small diverticula on the way in. Then slowly withdrew the scope insufflating to look circumferentially at the vanegas starting in the cecum, up the ascending colon to the hepatic flexure, then down the transverse colon to the splenic flexure and into the descending colon, I found a polyp here and removed it with snare polypectomy. Continued down into the sigmoid and then into the rectal vault. I retroflexed the scope and took a picture of the internal hemorrhoids. As I pulled the scope out I tried to chris the anus and think I saw an anal fissure. The patient tolerated the procedure. He was recovered in endoscopy suite. Recommended for repeat colonoscopy in 5 years. Anesthesia Type IV sedation by CITY PLANNING AIDE Estimated Blood Loss Estimated blood loss (mL): scant Specimens/Packing Specimens Removed desc colon polyp STEWART SMILEY DO May 04, 2023 12:33
--- NOTE | 2023-05-04 12:33 | Anesthesia-General Post-Op ---
MAC Patient Condition Mental Status/LOC: Same as Preop Cardiovascular: Satisfactory Nausea/Vomiting: Absent Respiratory: Satisfactory Pain: Controlled Complications: Absent Post Op Complications Complications None Follow Up Care/Instructions Patient Instructions None needed. Anesthesiology Discharge Order Discharge Order Patient is doing well, no complaints, stable vital signs, no apparent adverse anesthesia problems. No complications reported per nursing. OLEG THORNE CRNA May 04, 2023 12:33
--- NOTE | 2023-05-04 12:33 | Endoscopy Discharge Instruct ---
Endo Procedure/Findings Findings 1.: Polyp 2.: Diverticulosis 3.: Internal Hemorrhoids Discharge Instructions - Activity: You might feel a little sleepy until tomorrow. This is due to the medicine you received to relax you. Until tomorrow, you should: NOT drive a car, operate machinery or power tools. NOT drink any alcoholic beverages. NOT make any important decisions or sign importortant papers. Do not return to work until tomorrow, unless otherwise instructed. Resume previous activities tomorrow. Diet: Start by taking liquids. If you tolerate liquids, advance to solid food. 1.: Colonscopy in 5 years Notify Physician - If you experience excessive bleeding, unusual abdominal pain, fever, or chest pain, contact your doctor immediately. Follow-Up: Other Follow up in my office in one week STEWART SMILEY DO May 04, 2023 12:33
[2023-05-04 12:50] VITALS: BP 93/51
[2023-05-04 13:05] VITALS: BP 93/51
== END 2023-05-04 13:05 | disposition home or self-care (01) ==
LOC: ENDO 10:22
PROVIDERS: ATTEND Surgery
DX: D12.4 Benign neoplasm of descending colon (principal); K64.8 Other hemorrhoids; K62.5 Hemorrhage of anus and rectum; K57.30 Diverticulosis of large intestine without perforation or abscess without bleeding; K42.9 Umbilical hernia without obstruction or gangrene; E66.9 Obesity, unspecified; Z28.310 Unvaccinated for COVID-19; Z68.37 Body mass index [BMI] 37.0-37.9, adult

== ENCOUNTER 2023-08-07 21:45 | Emergency (ER) | payer BC ==
[~2023-08-07] VITALS: Ht 165 cm; Wt 100.0 kg
[2023-08-07] MEDS ORDERED: ACETAMINOPHEN 500 MG TABLET PO ONE (22:00)
[2023-08-07] MEDS ORDERED: NS IV 500 ML 500 ML IV SCH (22:00)
--- NOTE | 2023-08-07 22:00 | ED General ---
General Chief Complaint: Fever-Adult/Adol Stated Complaint: FEVER Nursing Triage Note: brought in by [facility] for fever, tachycardia, htn, dizziness. Source of Information: Patient Exam Limitations: No Limitations History of Present Illness Date Seen by Provider: Aug 07, 2023 Time Seen by Provider: 21:45 Initial Comments 53-year-old male presents to the emergency department today for shortness of breath on exertion. He states has been getting worse for the last couple of days however when deeper in discussion he states symptoms have been worsening over the last 5 years. He keeps going back to the fact that his heart was "damaged" by living in a house with mold. He has no specific cardiac diagnoses outside of history of paroxysmal atrial fibrillation and has not had issues with this for some time. No history of heart failure. He had a cardiac stress test in 2019 which was negative for any acute abnormalities. He denies any chest pain but states his heart has been racing the last couple of days. He feels like he has had fevers and EMS reports he had a fever in route. He denies any cough, abdominal pain, change in bowel or bladder habits. No known sick contacts. He takes a baby aspirin daily and some supplements hxki-[id number] but no prescription medications All other systems reviewed and negative except documented per HPI. Voice recognition software was used to help create this chart Allergies and Home Medications Allergies Coded Allergies: Iodinated Contrast Media (Unverified Adverse Reaction, Mild, RASH, 07/30/07) PT STATED ALLERGY TO "IV CONTRAST". STATED REACTION WAS A RASH. Patient Home Medication List Home Medication List Reviewed: Yes Discontinued Medications Cholecalciferol (Vitamin D3) (Vitamin D3) 25 Mcg Capsule, 25 MCG PO DAILY, (Reported) Discontinued Reason: No Longer Taking Entered as Reported by: SEBASTIÁN SWEET on 03/14/21 6228 Last Action: Discontinued Loratadine (Loratadine) 10 Mg Tablet, 10 MG PO BID PRN for ALLERGIES, (Reported) Discontinued Reason: No Longer Taking Entered as Reported by: NITO AMOR on 06/29/19858 Last Action: Discontinued Multivitamin (Multivitamins) 1 Each Tablet, 1 TAB PO DAILY, (Reported) Discontinued Reason: No Longer Taking Entered as Reported by: NITO AMOR on 06/29/19858 Last Action: Discontinued Review of Systems Review of Systems Constitutional: see HPI Past Yxxwzkq-Vlqgst-Adhrlq Hx Patient Social History Tobacco Use?: No Substance use?: No Alcohol Use?: No Pt feels they are or have been: No Immunizations Up To Date Tetanus Booster (TDap): Unknown PED Vaccines UTD: Yes Seasonal Allergies Seasonal Allergies: Yes Past Medical History Surgery/Hospitalization HX: umb hernia, left knee arthroscopy, afib, htn Surgeries: Yes (umbillical hernia repair, 2X left knee scopes, back cyst) Abdominal, Orthopedic Respiratory: No Cardiac: Yes (paroxysmal a-fib r/t to mold and poor air in home better since home is jos[place]) Atrial Fibrillation Neurological: No Reproductive Disorders: No Sexually Transmitted Disease: No Genitourinary: No Gastrointestinal: No (rectal bleeding) Musculoskeletal: No Endocrine: No HEENT: No Cancer: No Psychosocial: No Integumentary: No Recent Skin Changes Blood Disorders: No Family Medical History Cardiovascular disease uncle, Onset:Unknown maternal gpa, , Age:50's - 60, Onset:Unknown FH: prostate cancer 19 FATHER, Onset:Unknown Heart Disease, Cancer Physical Exam Vital Signs Vital Signs - First Documented 08/07/23 21:47 Temp 37.6 Pulse 111 Resp 13 B/P (MAP) 177/107 (130) Pulse Ox 98 O2 Delivery Room Air Capillary Refill : Less Than 3 Seconds Height, Weight, BMI Height: 5'6.00" Weight: 250lbs. oz. 113.364632lk; 36.00 BMI Method:Estimated General Appearance: No Apparent Distress, WD/WN HEENT: TMs Normal, Normal ENT Inspection, Pharynx Normal Neck: Full Range of Motion, Non Tender, Supple Respiratory: Chest Non Tender, Lungs Clear, Normal Breath Sounds, No Accessory Muscle Use, No Respiratory Distress Cardiovascular: Regular Rate, Rhythm, No Murmur, Normal Peripheral Pulses, Tachycardia Gastrointestinal: Normal Bowel Sounds, No Organomegaly, Non Tender, Soft Extremity: Normal Capillary Refill, Normal Inspection, Normal Range of Motion, Non Tender, No Calf Tenderness Neurologic/Psychiatric: Alert, Oriented x3, No Motor/Sensory Deficits Skin: Normal Color, Warm/Dry Focused Exam Lactate Level 08/07/23 22:00: Lactic Acid Level 1.85 Lactic Acid Level Laboratory Tests Test 08/07/23 22:00 Lactic Acid Level 1.85 MMOL/L (0.50-2.00) Progress/Results/Core Measures Suspected Sepsis SIRS Temperature: Pulse: 111 Respiratory Rate: 13 Laboratory Tests 08/07/23 22:00: White Blood Count 7.2 Blood Pressure 177 /107 Mean: 130 08/07/23 22:00: Lactic Acid Level 1.85 Laboratory Tests 08/07/23 22:00: Creatinine 0.98, Platelet Count 214, Total Bilirubin 0.4 Results/Orders Lab Results Laboratory Tests Test 08/07/23 22:00 Range/Units White Blood Count 7.2 4.3-11.0 10^3/uL Red Blood Count 5.16 4.30-5.52 10^6/uL Hemoglobin 16.4 13.3-17.7 g/dL Hematocrit 46 40-54 % Mean Corpuscular Volume 89 80-99 fL Mean Corpuscular Hemoglobin 32 25-34 pg Mean Corpuscular Hemoglobin Concent 36 32-36 g/dL Red Cell Distribution Width 12.8 10.0-14.5 % Platelet Count 214 130-400 10^3/uL Mean Platelet Volume 10.2 9.0-12.2 fL Immature Granulocyte % (Auto) 0 % Neutrophils (%) (Auto) 62 42-75 % Lymphocytes (%) (Auto) 30 12-44 % Monocytes (%) (Auto) 6 0-12 % Eosinophils (%) (Auto) 1 0-10 % Basophils (%) (Auto) 1 0-10 % Neutrophils # (Auto) 4.4 1.8-7.8 10^3/uL Lymphocytes # (Auto) 2.1 1.0-4.0 10^3/uL Monocytes # (Auto) 0.4 0.0-1.0 10^3/uL Eosinophils # (Auto) 0.1 0.0-0.3 10^3/uL Basophils # (Auto) 0.1 0.0-0.1 10^3/uL Immature Granulocyte # (Auto) 0.0 0.0-0.1 10^3/uL Sodium Level 138 135-145 MMOL/L Potassium Level 3.8 3.6-5.0 MMOL/L Chloride Level 105 98-107 MMOL/L Carbon Dioxide Level 23 21-32 MMOL/L Anion Gap 10 5-14 MMOL/L Blood Urea Nitrogen 17 7-18 MG/DL Creatinine 0.98 0.60-1.30 MG/DL Estimat Glomerular Filtration Rate 91 BUN/Creatinine Ratio 17 Glucose Level 152 H 70-105 MG/DL Lactic Acid Level 1.85 0.50-2.00 MMOL/L Calcium Level 9.4 8.5-10.1 MG/DL Corrected Calcium 9.2 8.5-10.1 MG/DL Total Bilirubin 0.4 0.1-1.0 MG/DL Aspartate Amino Transf (AST/SGOT) 25 5-34 U/L Alanine Aminotransferase (ALT/SGPT) 45 0-55 U/L Alkaline Phosphatase 70 40-136 U/L Troponin I < 0.028 <0.028 NG/ML B-Type Natriuretic Peptide < 10.0 <100.0 PG/ML Total Protein 7.7 6.4-8.2 GM/DL Albumin 4.3 3.2-4.5 GM/DL Influenza Type A (RT-PCR) Not Detected Not Detecte Influenza Type B (RT-PCR) Not Detected Not Detecte SARS-CoV-2 RNA (RT-PCR) Not Detected Not Detecte My Orders Orders - JIMBO MAURO DO Cbc And Automated Diff (08/07/23 21:54) Comprehensive Metabolic Panel (08/07/23 21:54) Blood Culture (08/07/23 21:54) Chest 1 View, Ap/Pa Only (08/07/23 21:54) Ed Iv/Invasive Line Start (08/07/23 21:54) Vital Signs Adult Sepsis Patie Q15M (08/07/23 21:54) Lactic Acid Analyzer (08/07/23 21:54) Ns Iv 500 Ml (Ns Iv 500 Ml) (08/07/23 22:00) Acetaminophen Tablet (Acetaminophen Ta (08/07/23 22:00) Covid 19 Inhouse Test (08/07/23 21:54) Influenza A And B By Pcr (08/07/23 21:54) Bnp [place] (08/07/23 21:54) Troponin I [place] (08/07/23 21:54) Ekg Tracing (08/07/23 21:56) Medications Given in ED Current Medications Medications Dose Ordered Sig/Gucci Route Start Time Stop Time Status Last Admin Dose Admin Acetaminophen 1,000 mg ONCE ONCE PO 08/07/23 22:00 08/07/23 22:01 DC 08/07/23 22:08 1,000 MG Vital Signs/I&O 11/24/23 11/24/23 21:47 22:08 Temp 37.6 37.6 Pulse 111 Resp 13 B/P (MAP) 177/107 (130) Pulse Ox 98 O2 Delivery Room Air Capillary Refill : Less Than 3 Seconds Blood Pressure Mean: 130 ECG Comment Sinus tachycardia with a rate of 102 bpm. Normal intervals. Normal axis. No ST or T wave abnormality. No ectopy. No STEMI. Departure Communication (Admissions) Patient is hemodynamically stable. Symptoms are quite longstanding. His heart score is 2. EKG is nonischemic, troponin is negative. No indication for second troponin as this is being again longstanding. He had a stress test in 2019 which was negative for anything acute. His symptoms have been progressive. He continues to state that he has been exposed to mold and thinks he has heart damage because of this. There is no clinical evidence for "heart damage" of any kind. Chest x-ray is clear no pulmonary edema. BNP is negative. Chemistries unremarkable outside of slight elevation of his blood sugar. Did recommend he follow this with his primary doctor. Independently reviewed his chest x-ray and EKG. His CBC is negative for any anemia, other acute abnormalities. He was febrile here. He likely has a viral illness of some sort. He is given Tylenol and fluids and had improvement in his heart rate, initially in the low 100s, now in the mid 80s. Blood pressure 144/109 at time of discharge. He has previously taken medications for hypertension but has not done so in some time. Advised to follow-up with his primary doctor and keeping a log of his blood pressures. Impression Primary Impression: Dyspnea on exertion Disposition: HOME, SELF-CARE Condition: Stable Departure-Patient Inst. Referrals: PATRICIA LEIGH DO (PCP/Family) Primary Care Physician Patient Instructions: Shortness of Breath, Adult ED Add. Discharge Instructions: No emergent medical conditions are identified. Your blood pressures have been elevated since you have been here. I recommend you keep a log of blood pressures and take these to your primary doctor for further evaluation and treatment. Your blood sugars are slightly elevated. I recommend you follow-up again with your primary doctor for further evaluation of this. He did have a fever during transport to the hospital. Is likely have a viral type illness which is causing fatigue that is worsening her chronic symptoms. Your other labs, exam and vital signs are reassuring. Return to the emergency department for any severe concerns. Follow-up with your primary doctor for any nonemergent needs. All discharge instructions reviewed with patient and/or family. Voiced understanding. JIMBO MAURO DO Aug 07, 2023 22:00
[2023-08-07 22:13] LABS: BASOPHILS # (AUTO) 0.1 10^3/uL (0.0-0.1); BASOPHILS % (AUTO) 1 % (0-10); EOSINOPHILS # (AUTO) 0.1 10^3/uL (0.0-0.3); EOSINOPHILS % (AUTO) 1 % (0-10); HEMATOCRIT 46 % (40-54); HEMOGLOBIN 16.4 g/dL (13.3-17.7); LYMPHOCYTES # (AUTO) 2.1 10^3/uL (1.0-4.0); LYMPHOCYTES % (AUTO) 30 % (12-44); MEAN CORPUSCULAR HEMOGLOBIN 32 pg (25-34); MEAN CORPUSCULAR HGB CONC 36 g/dL (32-36); MEAN CORPUSCULAR VOLUME 89 fL (80-99); MEAN PLATELET VOLUME 10.2 fL (9.0-12.2); MONOCYTES # (AUTO) 0.4 10^3/uL (0.0-1.0); MONOCYTES % (AUTO) 6 % (0-12); NEUTROPHILS # (AUTO) 4.4 10^3/uL (1.8-7.8); NEUTROPHILS % (AUTO) 62 % (42-75); PLATELET COUNT 214 10^3/uL (130-400); WHITE BLOOD COUNT 7.2 10^3/uL (4.3-11.0)
[2023-08-07 22:23] LABS: ALBUMIN 4.3 GM/DL (3.2-4.5); CHLORIDE 105 MMOL/L (98-107); POTASSIUM 3.8 MMOL/L (3.6-5.0); SODIUM 138 MMOL/L (135-145)
[2023-08-07 22:24] LABS: CALCIUM 9.4 MG/DL (8.5-10.1)
[2023-08-07 22:25] LABS: GLUCOSE 152 MG/DL (70-105)
[2023-08-07 22:26] LABS: TOTAL PROTEIN 7.7 GM/DL (6.4-8.2)
[2023-08-07 22:27] LABS: BILIRUBIN,TOTAL 0.4 MG/DL (0.1-1.0); CARBON DIOXIDE 23 MMOL/L (21-32)
[2023-08-07 22:29] LABS: ALKALINE PHOSPHATASE 70 U/L (40-136); CREATININE SERUM 0.98 MG/DL (0.60-1.30); GFR ESTIMATED 91
[2023-08-07 22:30] LABS: BUN/CREATININE RATIO 17
[2023-08-07 22:32] LABS: ALANINE AMINOTRANSFERASE 45 U/L (0-55)
--- NOTE | 2023-08-07 22:41 | Diagnostic Imaging Report ---
Indication: Dyspnea on exertion Portable chest 9:52 PM Heart size and pulmonary vascularity are normal. Lungs are clear. There are no effusions or pneumothoraces. IMPRESSION: Negative chest Dictated by: Dictated on workstation # [id number]
[2023-08-07 22:58] VITALS: BP 144/79
== END 2023-08-07 23:03 | disposition home or self-care (01) ==
LOC: EDUNIT# 21:45 → ER 21:46
DX: R06.02 Shortness of breath (principal); R50.9 Fever, unspecified; R42 Dizziness and giddiness; Z79.82 Long term (current) use of aspirin
CPT/HCPCS: 36415; 71045; 80053; 83605; 83880; 84484; 85025; 87040; 87077; 87636; 93005

== ENCOUNTER → 2023-08-11 | Outpatient (CLI) | payer BC ==
[~2023-08-11] MED LIST changes: +ALPR0.25 PO
== END ==
LOC: CARD 08:11
PROVIDERS: ATTEND Internal Medicine
DX: I50.22 Chronic systolic (congestive) heart failure (principal)
CPT/HCPCS: 93306

== ENCOUNTER 2023-08-12 12:58 | Observation (INO) | payer BC ==
[~2023-08-12] VITALS: Ht 165.1 cm; Wt 103.5 kg
[~2023-08-12 12:58] MED LIST changes: -ALPR0.25 PO
--- NOTE | 2023-08-12 13:00 | History & Physical ---
History of Present Illness Source: patient, family, old records Exam Limitations: no limitations Date Seen 08/12/23 Attending Physician Liza Daniels DO PCP Admitting Physician: Liza Daniels DO Attending Physician: Liza Daniels DO Referring Physician Date of Admission Home Medications & Allergies Home Medications Reviewed patient Home Medication Reconciliation performed by pharmacy medication reconciliations pest control chemical technician and/or nursing. Patients Allergies have been reviewed. Allergies Allergies Coded Allergies Iodinated Contrast Media (Unverified Adverse Reaction, Mild, RASH, 07/30/07) PT STATED ALLERGY TO "IV CONTRAST". STATED REACTION WAS A RASH. Past Nmxjizo-Ljyqxy-Uxnzvf Hx Patient Social History Alcohol Beverage of Choice: Wine 2nd Hand Smoke Exposure: No Recent Hopitalizations: No Immunizations Up To Date Tetanus Booster (TDap): Unknown Pediatric: Yes Seasonal Allergies Seasonal Allergies: Yes Past Medical History Surgeries: Abdominal, Orthopedic Cardiac: Atrial Fibrillation Reproductive: No Sexually Transmitted Disease: No Skin/Integumentary: Recent Skin Changes History of Blood Disorders: No Family History Cardiovascular disease uncle, Onset:Unknown maternal gpa, , Age:50's - 60, Onset:Unknown FH: prostate cancer 19 FATHER, Onset:Unknown Heart Disease, Cancer Physical Exam Physical Exam Vital Signs Capillary Refill : Height, Weight, BMI Height: 5'6.00" Weight: 250lbs. oz. 113.577514rp; 36.00 BMI Method:Estimated Results Results/Procedures Labs Patient resulted labs reviewed. LIZA DANIELS DO Aug 12, 2023 13:00
[2023-08-12 13:30] VITALS: BP 164/95
[2023-08-12] MEDS ORDERED: MELATONIN 3 MG TABLET PO PRN (13:30)
[2023-08-12] MEDS ORDERED: oxyCODONE IMMEDIATE RELEASE 5 MG TABLET PO PRN (13:30)
[2023-08-12] MEDS ORDERED: HYDROmorphone INJECTION 2 MG/ML VIAL IV PRN (13:30)
[2023-08-12] MEDS ORDERED: BISACODYL 10 MG SUPPOSITORY PR PRN (13:30)
[2023-08-12] MEDS ORDERED: diphenhydrAMINE 25 MG TABLET PO PRN (13:30)
[2023-08-12] MEDS ORDERED: ANTACID SUSPENSION 30 ML UDC PO PRN (13:30)
[2023-08-12] MEDS ORDERED: ONDANSETRON INJECTION 4 MG/2 ML (SDV) IV PRN (13:30)
[2023-08-12] MEDS ORDERED: ONDANSETRON 4 MG ORAL DISSOLVE TABLET PO PRN (13:30)
[2023-08-12] MEDS ORDERED: MILK OF MAGNESIA 400 MG/5 ML 30 ML UDC PO PRN (13:30)
[2023-08-12] MEDS ORDERED: CALCIUM CARBONATE 500 MG CHEW TABLET PO PRN (13:30)
[2023-08-12] MEDS ORDERED: diphenhydrAMINE INJ 50 MG/ML VIAL IVP PRN (13:30)
[2023-08-12] MEDS ORDERED: ACETAMINOPHEN 325 MG TABLET PO PRN (13:30)
[2023-08-12] MEDS ORDERED: LACTULOSE SYRUP 10GM/15ML 30ML UDC PO PRN (13:30)
[2023-08-12 14:30] LABS: BASOPHILS # (AUTO) 0.1 10^3/uL (0.0-0.1); BASOPHILS % (AUTO) 1 % (0-10); EOSINOPHILS # (AUTO) 0.1 10^3/uL (0.0-0.3); EOSINOPHILS % (AUTO) 2 % (0-10); HEMATOCRIT 47 % (40-54); HEMOGLOBIN 16.8 g/dL (13.3-17.7); LYMPHOCYTES # (AUTO) 1.6 10^3/uL (1.0-4.0); LYMPHOCYTES % (AUTO) 31 % (12-44); MEAN CORPUSCULAR HEMOGLOBIN 32 pg (25-34); MEAN CORPUSCULAR HGB CONC 36 g/dL (32-36); MEAN CORPUSCULAR VOLUME 88 fL (80-99); MEAN PLATELET VOLUME 10.2 fL (9.0-12.2); MONOCYTES # (AUTO) 0.4 10^3/uL (0.0-1.0); MONOCYTES % (AUTO) 7 % (0-12); NEUTROPHILS # (AUTO) 3.2 10^3/uL (1.8-7.8); NEUTROPHILS % (AUTO) 59 % (42-75); PLATELET COUNT 213 10^3/uL (130-400); WHITE BLOOD COUNT 5.3 10^3/uL (4.3-11.0)
[2023-08-12 14:31] LABS: ALBUMIN 4.4 GM/DL (3.2-4.5)
[2023-08-12 14:32] LABS: CHLORIDE 106 MMOL/L (98-107); POTASSIUM 3.8 MMOL/L (3.6-5.0); SODIUM 138 MMOL/L (135-145)
[2023-08-12 14:33] LABS: CALCIUM 9.6 MG/DL (8.5-10.1)
[2023-08-12 14:34] LABS: GLUCOSE 109 MG/DL (70-105); TOTAL PROTEIN 7.7 GM/DL (6.4-8.2)
[2023-08-12 14:35] LABS: CARBON DIOXIDE 22 MMOL/L (21-32)
[2023-08-12 14:36] LABS: BILIRUBIN,TOTAL 0.5 MG/DL (0.1-1.0)
[2023-08-12 14:38] LABS: ALKALINE PHOSPHATASE 64 U/L (40-136); CREATININE SERUM 0.89 MG/DL (0.60-1.30); GFR ESTIMATED 101
[2023-08-12 14:39] LABS: BUN/CREATININE RATIO 13
[2023-08-12 14:41] LABS: ALANINE AMINOTRANSFERASE 50 U/L (0-55)
--- NOTE | 2023-08-12 14:49 | Diagnostic Imaging Report ---
INDICATION: Dyspnea. TECHNIQUE/COMPARISON: A single AP view of the chest was obtained. Comparison is made to the study of 08/07/2023. FINDINGS: There is mild patchy increased density now in the right perihilar region. This is most pronounced in the right upper lobe. There is no consolidation, pneumothorax, or significant pleural fluid. IMPRESSION: Probable developing right upper lobe and perihilar infiltrate. An additional followup study with PA and lateral projections would be useful. Dictated by: Dictated on workstation # [id number]
[2023-08-12 14:51] LABS: INR 0.9 (0.8-1.4); PROTHROMBIN TIME PATIENT 12.6 SEC (12.2-14.7)
[2023-08-12 14:53] LABS: ERYTHROCYTE SEDIMENTATION RATE 1 MM/HR (0-30)
[2023-08-12] MEDS ORDERED: diphenhydrAMINE INJ 50 MG/ML VIAL IVP NR (15:15)
[2023-08-12] MEDS ORDERED: methylPREDNISolone INJ 40 MG/ML VIAL IV NR (15:15)
[2023-08-12 15:20] LABS: ABG BASE EXCESS 4.3 MMOL/L (-2.5-2.5); ABG OXYGEN SATURATION 99 % (94-100); ABG PCO2 34 MMHG (35-45); ABG PH 7.51 (7.37-7.43); ABG PO2 107 MMHG (79-93); ABG TCO2 28.1 MMOL/L (21.0-31.0)
[2023-08-12 15:21] LABS: INSPIRED O2 ROOM AIR; VENTILATOR NO
--- NOTE | 2023-08-12 15:28 | Consultation-Cardiology ---
HPI-Cardiology Cardiology Consultation Date of Consultation 08/12/23 Date of Admission Time Seen by Provider: 15:25 Indication: Shortness of breath HPI 53-year-old gentleman with history of paroxysmal atrial fibrillation, hypertension and hyperlipidemia. Patient has been reporting increasing dyspnea, reporting episode of fever with temperature up to 101 at home for the past week. Feeling hot and reporting shortness of breath where he cannot lay on his back but he is able to lay and sleep on his stomach. No pedal edema. No claudication, reporting fatigue and loss of energy. Home Medications & Allergies Allergies: Coded Allergies: Iodinated Contrast Media (Unverified Adverse Reaction, Mild, RASH, 07/30/07) PT STATED ALLERGY TO "IV CONTRAST". STATED REACTION WAS A RASH. Home Medication List Reviewed: Yes MVR-Kxkdaw-Mqzhyw Hx Patient Social History Marital Status: Employed/Student: employed 2nd Hand Smoke Exposure: No Recent Hopitalizations: No Immunizations Up To Date Tetanus Booster (TDap): Unknown Past Medical History Discussed below Family Medical History Significant Family History: Heart Disease, Cancer Family History: Cardiovascular disease uncle, Onset:Unknown maternal gpa, , Age:50's - 60, Onset:Unknown FH: prostate cancer 19 FATHER, Onset:Unknown Review of Systems-General Review of Systems Constitutional: see HPI, malaise, weakness EENTM: see HPI, no symptoms reported Respiratory: see HPI, orthopnea, short of breath Cardiovascular: see HPI Gastrointestinal: no symptoms reported, see HPI Genitourinary: no symptoms reported, see HPI Musculoskeletal: no symptoms reported, see HPI Skin: no symptoms reported, see HPI Psychiatric/Neurological: No Symptoms Reported, See HPI Reviewed Test Results Reviewed Test Results Lab Laboratory Tests Test 08/12/23 14:10 08/12/23 15:12 08/12/23 15:15 Range/Units White Blood Count 5.3 4.3-11.0 10^3/uL Red Blood Count 5.32 4.30-5.52 10^6/uL Hemoglobin 16.8 13.3-17.7 g/dL Hematocrit 47 40-54 % Mean Corpuscular Volume 88 80-99 fL Mean Corpuscular Hemoglobin 32 25-34 pg Mean Corpuscular Hemoglobin Concent 36 32-36 g/dL Red Cell Distribution Width 12.7 10.0-14.5 % Platelet Count 213 130-400 10^3/uL Mean Platelet Volume 10.2 9.0-12.2 fL Immature Granulocyte % (Auto) 0 % Neutrophils (%) (Auto) 59 42-75 % Lymphocytes (%) (Auto) 31 12-44 % Monocytes (%) (Auto) 7 0-12 % Eosinophils (%) (Auto) 2 0-10 % Basophils (%) (Auto) 1 0-10 % Neutrophils # (Auto) 3.2 1.8-7.8 10^3/uL Lymphocytes # (Auto) 1.6 1.0-4.0 10^3/uL Monocytes # (Auto) 0.4 0.0-1.0 10^3/uL Eosinophils # (Auto) 0.1 0.0-0.3 10^3/uL Basophils # (Auto) 0.1 0.0-0.1 10^3/uL Immature Granulocyte # (Auto) 0.0 0.0-0.1 10^3/uL Erythrocyte Sedimentation Rate 1 0-30 MM/HR Prothrombin Time 12.6 12.2-14.7 SEC INR Comment 0.9 0.8-1.4 Activated Partial Thromboplast Time 29 24-35 SEC D-Dimer < 0.27 0.00-0.49 UG/ML Sodium Level 138 135-145 MMOL/L Potassium Level 3.8 3.6-5.0 MMOL/L Chloride Level 106 98-107 MMOL/L Carbon Dioxide Level 22 21-32 MMOL/L Anion Gap 10 5-14 MMOL/L Blood Urea Nitrogen 12 7-18 MG/DL Creatinine 0.89 0.60-1.30 MG/DL Estimat Glomerular Filtration Rate 101 BUN/Creatinine Ratio 13 Glucose Level 109 H 70-105 MG/DL Lactic Acid Level 1.97 0.50-2.00 MMOL/L Calcium Level 9.6 8.5-10.1 MG/DL Corrected Calcium 9.3 8.5-10.1 MG/DL Total Bilirubin 0.5 0.1-1.0 MG/DL Aspartate Amino Transf (AST/SGOT) 30 5-34 U/L Alanine Aminotransferase (ALT/SGPT) 50 0-55 U/L Alkaline Phosphatase 64 40-136 U/L Troponin I < 0.028 <0.028 NG/ML C-Reactive Protein High Sensitivity 0.14 0.00-0.50 MG/DL B-Type Natriuretic Peptide < 10.0 <100.0 PG/ML Total Protein 7.7 6.4-8.2 GM/DL Albumin 4.4 3.2-4.5 GM/DL Arterial Blood pH 7.51 H 7.37-7.43 Arterial Blood Partial Pressure CO2 34 L 35-45 MMHG Arterial Blood Partial Pressure O2 107 H 79-93 MMHG Arterial Blood HCO3 27 23-27 MMOL/L Arterial Blood Total CO2 28.1 21.0-31.0 MMOL/L Arterial Blood Oxygen Saturation 99 94-100 % Arterial Blood Base Excess 4.3 H -2.5-2.5 MMOL/L Blood Gas Ventilator Setting NO Blood Gas Inspired Oxygen ROOM AIR Physical Exam Physical Exam Vital Signs Capillary Refill : Height, Weight, BMI Height: 5'6.00" Weight: 250lbs. oz. 113.060460sh; 36.00 BMI Method:Estimated General Appearance: No Apparent Distress, WD/WN Eyes: Bilateral Eye Normal Inspection, Bilateral Eye PERRL, Bilateral Eye EOMI HEENT: PERRL/EOMI, TMs Normal, Normal ENT Inspection, Pharynx Normal, Moist Mucous Membranes Neck: Full Range of Motion, Normal Inspection, Non Tender, Supple, Carotid Bruit Respiratory: Chest Non Tender, Normal Breath Sounds, No Accessory Muscle Use, No Respiratory Distress Cardiovascular: Regular Rate, Rhythm, No Edema, No Gallop, No JVD, No Murmur, Normal Peripheral Pulses Gastrointestinal: Normal Bowel Sounds, No Organomegaly, No Pulsatile Mass, Non Tender, Soft Back: Normal Inspection, No CVA Tenderness, No Vertebral Tenderness Extremity: Normal Capillary Refill, Normal Inspection, Normal Range of Motion, Non Tender, No Calf Tenderness, No Pedal Edema Neurologic/Psychiatric: Alert, Oriented x3, No Motor/Sensory Deficits, Normal Mood/Affect Skin: Normal Color, Warm/Dry Lymphatic: No Adenopathy A/P-Cardiology Admission Diagnosis Shortness of breath Fatigue Hypertension Hyperlipidemia Assessment/Plan Shortness of breath, orthopnea Patient is reporting difficulty sleeping on his back, able to lay down on his stomach Having episode of fever with questionable infiltrate on his chest x-ray Labs are normal. Recommend repeating chest x-ray, evaluating tickborne panel Evaluate TSH and cortisol level Generalized fatigue, loss of energy Workup has been negative, had an echocardiogram done recently History of paroxysmal atrial fibrillation, not taking any medication, continue to monitor telemetry at this point. Hypertension, not taking any medication, monitor blood pressure Hyperlipidemia, I will avoid statin at this time due to his generalized weakness and fatigue History of multiple tick bites in the past, evaluate tickborne panel Obesity, discussed weight loss Anxiety, managed by primary care physician MODESTA EUGENE MD Aug 12, 2023 15:28
[2023-08-12] MEDS ORDERED: RT-ALBUTEROL SULF 2.5 MG/3 ML PRE-MIX VIAL INH PRN (15:45)
[2023-08-12 15:56] LABS: AMPHETAMINE SCREEN, URINE NEGATIVE (NEGATIVE); BARBITURATE SCREEN URINE NEGATIVE (NEGATIVE); CANNABINOID SCREEN, URINE NEGATIVE (NEGATIVE); COCAINE SCREEN URINE NEGATIVE (NEGATIVE); METHADONE STAT NEGATIVE (NEGATIVE); OPIATE SCREEN URINE NEGATIVE (NEGATIVE); OXYCODONE STAT NEGATIVE (NEGATIVE); TRICYCLIC ANTIDEPRESSANTS SCRE NEGATIVE (NEGATIVE)
--- NOTE | 2023-08-12 15:59 | History & Physical ---
ORION LAUREANO 08/12/23 1559: History of Present Illness History of Present Illness Reason for visit/HPI Michael is a 53 yo M with a PMH of morbid obesity, untreated AFib, HTN, and HLD who presents for worsening fatigue, shortness of breath, overheating, and frequent urination x several months as well as and episode of dizziness and "heart racing" that prompted an ER visit on 08/07/23. His evaluation was negative. His shortness of breath sometimes presents at rest but is worst with lying supine and exertion. He states he can only stand for a few minutes before he experiences nausea, dizziness, heart racing, shortness of breath and/or weakness that force him to sit down. He does not have an established diagnosis of orthostatic hypotension but does wear compression socks. Date of Admission Aug 12, 2023 at 13:25 Date Seen by a Provider: Aug 12, 2023 I consulted on this patient on 08/12/23 15:55 Attending Physician Liza Leigh DO Admitting Physician Admitting Physician: Liza Leigh DO Attending Physician: Liza Leigh DO Consult Allergies and Home Medications Allergies Coded Allergies: Iodinated Contrast Media (Unverified Adverse Reaction, Mild, RASH, 07/30/07) PT STATED ALLERGY TO "IV CONTRAST". STATED REACTION WAS A RASH. Patient Home Medication List Discontinued Medications Cholecalciferol (Vitamin D3) (Vitamin D3) 25 Mcg Capsule, 25 MCG PO DAILY, (Reported) Discontinued Reason: No Longer Taking Entered as Reported by: SEBASTIÁN SWEET on 03/14/21 1558 Loratadine (Loratadine) 10 Mg Tablet, 10 MG PO BID PRN for ALLERGIES, (Reported) Discontinued Reason: No Longer Taking Entered as Reported by: NITO AMOR on 06/29/19 0859 Multivitamin (Multivitamins) 1 Each Tablet, 1 TAB PO DAILY, (Reported) Discontinued Reason: No Longer Taking Entered as Reported by: NITO AMOR on 06/29/19 0866 Past Hwuzkdt-Mnhirq-Obmvvn Hx Patient Social History Marrital Status: Employed/Student: employed Tobacco Use?: No Use of E-Cig and/or Vaping dev: No Substance use?: Yes Substance type: Caffeine Substance frequency: Daily Alcohol Use?: No Pt feels they are or have been: No Immunizations Up To Date Tetanus Booster (TDap): Unknown Hepatitis A: No Hepatitis B: No PED Vaccines UTD: Yes Seasonal Allergies Seasonal Allergies: Yes Current Status Advance Directives: No Primary Language: Stateless Preferred Spoken Language: Stateless Is interpretation needed?: No Sensory deficits: Vision impairment Implanted or Applied Medical D: None Past Medical History Surgeries: Abdominal, Orthopedic Atrial Fibrillation Sexually Transmitted Disease: No Recent Skin Changes Blood Disorders: No Family Medical History Cardiovascular disease uncle, Onset:Unknown maternal gpa, , Age:50's - 60, Onset:Unknown FH: prostate cancer 19 FATHER, Onset:Unknown Heart Disease, Cancer Review of Systems Constitutional: malaise, weakness EENTM: blurred vision Respiratory: dyspnea on exertion, orthopnea, short of breath Cardiovascular: No chest pain; palpitations Gastrointestinal: no symptoms reported Genitourinary: frequency Musculoskeletal: back pain Psychiatric/Neurological: Weakness Physical Exam Vital Signs Capillary Refill : Height, Weight, BMI Height: 5'6.00" Weight: 250lbs. oz. 113.069011ft; 37.86 BMI Method:Estimated Assessment/Plan Assessment and Plan Shortness of breath Orthopnea Etiology unclear; undiagnosed sleep apnea, lung infection or tick-born illness possible - CXR today showing "probable developing RUL and perihilar infiltrate" - Patient reports recent fever with a Tmax of 101 F. - Recent echocardiogram reportedly unremarkable - Referral has been placed for outpatient sleep study - Repeat CXR recommed by cardiology - Tick panel ordered; results pending - TSH levels ordered; results pending - Albuterol started Fatigue - Etiology unclear as above; undiagnosed sleep apnea, cortisol abnormality or tick-born disease possible. - Patient has morbid obesity (BMI 37) - Patient reports recent, numerous tick bites - Normal T4, ferritin, B12 and folate on 06/02/2023 - a1C 6.1 on 05/26/2023 - Referral has been placed for outpatient sleep study - Will consider orthostatic vitals Paroxysmal Afib - Not medicated - Currently sinus rhythm - Cardiology consulted - On telemetry Hypertension - Not medicated - Monitor Morbid obesity - Weight loss discussed with cardiology Hyperlipidemia - Cardiology deferring statin at this time due to patient's fatigue Diabetes - a1C 6.1 on 05/2023 - Sliding scale insulin "A" Admission Diagnosis Dyspnea Fatigue Possible pulmonary infection Admission Status: Observation Reason for Inpatient Admission: Dyspnea LIZA LEIGH DO 08/13/23 0451: History of Present Illness History of Present Illness Reason for visit/HPI Chief complaint: Dyspnea with diaphoresis This is a 73-year-old male clinic patient of mine who presented 2 days after clinic visit with worsening shortness of breath and diaphoresis. The only comfortable position he can be he is prone. to initiate workup to rule out aneurysm. Cardiology consulted. Time Seen by a Provider: 14:00 Allergies and Home Medications Allergies Coded Allergies: Iodinated Contrast Media (Unverified Adverse Reaction, Mild, RASH, 07/30/07) PT STATED ALLERGY TO "IV CONTRAST". STATED REACTION WAS A RASH. Patient Home Medication List Home Medication List Reviewed: Yes Discontinued Medications Cholecalciferol (Vitamin D3) (Vitamin D3) 25 Mcg Capsule, 25 MCG PO DAILY, (Reported) Discontinued Reason: No Longer Taking Entered as Reported by: SEBASTIÁN SWEET on 03/14/21 1558 Loratadine (Loratadine) 10 Mg Tablet, 10 MG PO BID PRN for ALLERGIES, (Reported) Discontinued Reason: No Longer Taking Entered as Reported by: NITO AMOR on 06/29/19 0859 Multivitamin (Multivitamins) 1 Each Tablet, 1 TAB PO DAILY, (Reported) Discontinued Reason: No Longer Taking Entered as Reported by: NITO AMOR on 06/29/19 0859 Past Hqotdkd-Dksgyz-Gqnbja Hx Patient Social History Marrital Status: Employed/Student: employed Smoking Status: Never a Smoker Past Medical History Hypertension Family Medical History Cardiovascular disease uncle, Onset:Unknown maternal gpa, , Age:50's - 60, Onset:Unknown FH: prostate cancer 19 FATHER, Onset:Unknown Review of Systems Constitutional: see HPI, malaise, weakness Respiratory: dyspnea on exertion, orthopnea, short of breath Physical Exam General Appearance: WD/WN, Anxious, Mild Distress Eyes: Bilateral Eye Normal Inspection, Bilateral Eye PERRL, Bilateral Eye EOMI HEENT: PERRL/EOMI, Normal ENT Inspection, Pharynx Normal Neck: Full Range of Motion, Normal Inspection, Non Tender, Supple, Carotid Bruit Respiratory: Chest Non Tender, Lungs Clear, Normal Breath Sounds, No Accessory Muscle Use, No Respiratory Distress Cardiovascular: Regular Rate, Rhythm, No Edema, No Gallop, No JVD, No Murmur, Normal Peripheral Pulses Gastrointestinal: Normal Bowel Sounds, No Organomegaly, No Pulsatile Mass, Non Tender, Soft Back: Normal Inspection, No CVA Tenderness, No Vertebral Tenderness Extremity: Normal Capillary Refill, Normal Inspection, Normal Range of Motion, Non Tender, No Calf Tenderness, No Pedal Edema Neurologic/Psychiatric: Alert, Oriented x3, No Motor/Sensory Deficits, Normal Mood/Affect Skin: Normal Color, Warm/Dry Lymphatic: No Adenopathy Assessment/Plan Assessment and Plan Assessment: Chest pain Diaphoresis Suspected CAMRON noncompliant with follow-up Obesity Borderline diabetes Allergies Plan: CT angiogram Cardiology consult Reviewed echo Nocturnal oxygen test Admission Diagnosis Admission Status: Observation Supervisory-Addendum Brief Verification & Attestation Participated in pt care: history, MDM, physical Personally performed: exam, history, MDM, supervision of care Care discussed with: Medical Student Procedures: n/a Results interpretation: Verified all documentation Verification and Attestation of Medical Student E/M Service A medical student performed and documented this service in my presence. I reviewed and verified all information documented by the medical student and made modifications to such information, when appropriate. I personally performed the physical exam and medical decision making. Liza Leigh Aug 13, 2023,04:51 ORION LAUREANO Aug 12, 2023 15:59 LIZA LEIGH DO Aug 13, 2023 04:51
[2023-08-12 16:00] VITALS: BP 136/87
[2023-08-12] MEDS: inSUlin ASPART 1 UNIT/0.01 ML (PER UNIT) SC SCH ×2 (16:00→20:46)
--- NOTE | 2023-08-12 16:42 | Diagnostic Imaging Report ---
PROCEDURE: CT angiography of the chest with contrast and CT abdomen and pelvis with contrast. TECHNIQUE: Multiple contiguous axial images were obtained through the chest, abdomen and pelvis after administration of intravenous contrast. 3D MIP reconstructed CT angiography acquisitions of the aorta were then performed. Auto Exposure Controls were utilized during the CT exam to meet ALARA standards for radiation dose reduction. INDICATION: Back pain, COMPARISON: None. FINDINGS: Normal caliber aorta. No evidence of dissection or aneurysm. The heart is enlarged. No pericardial effusion. Normal caliber pulmonary artery. No central of acute pulmonary emboli. The lungs are clear. No pulmonary mass or consolidation. No suspicious pulmonary nodules. No pleural effusion, pneumothorax, or pleural mass. No lymphadenopathy within the chest. No mediastinal mass. The thyroid gland is normal. The liver, spleen, adrenal glands, and pancreas are normal. The gallbladder is normal. The kidneys are normal. The bowel is nondilated. No free air, loculated fluid collections, or ascites. Small fat-containing umbilical hernia. Scattered diverticula within the sigmoid colon without evidence of acute diverticulitis. The urinary bladder is normal. The osseous structures demonstrate no lytic or sclerotic bone lesions. IMPRESSION: Normal caliber aorta. No evidence of dissection or aneurysm. No acute findings in the chest, abdomen or pelvis. Dictated by: Dictated on workstation # [id number]
[2023-08-12] MEDS ORDERED: ENOXAPARIN 40 MG/0.4 ML SYRINGE SC SCH (18:00)
[2023-08-12 20:00] VITALS: BP 149/88
[2023-08-12] MEDS: SENNOSIDES 8.6 MG TABLET PO SCH (20:46)
[2023-08-12] MEDS: DOCUSATE SODIUM 100 MG CAPSULE PO SCH (20:46)
[2023-08-12 23:41] VITALS: BP 140/82
[2023-08-13 04:00] VITALS: BP 130/77
[2023-08-13 04:18] LABS: BASOPHILS % (AUTO) 0 % (0-10); EOSINOPHILS % (AUTO) 0 % (0-10); HEMATOCRIT 48 % (40-54); LYMPHOCYTES # (AUTO) 0.9 10^3/uL (1.0-4.0); LYMPHOCYTES % (AUTO) 7 % (12-44); MEAN CORPUSCULAR HEMOGLOBIN 32 pg (25-34); MEAN CORPUSCULAR HGB CONC 35 g/dL (32-36); MEAN CORPUSCULAR VOLUME 89 fL (80-99); MEAN PLATELET VOLUME 10.5 fL (9.0-12.2); MONOCYTES # (AUTO) 0.2 10^3/uL (0.0-1.0); MONOCYTES % (AUTO) 2 % (0-12); NEUTROPHILS # (AUTO) 10.7 10^3/uL (1.8-7.8); NEUTROPHILS % (AUTO) 90 % (42-75); PLATELET COUNT 216 10^3/uL (130-400); WHITE BLOOD COUNT 11.8 10^3/uL (4.3-11.0)
[2023-08-13 04:26] LABS: ALBUMIN 4.3 GM/DL (3.2-4.5); POTASSIUM 4.2 MMOL/L (3.6-5.0)
[2023-08-13 04:27] LABS: CALCIUM 9.6 MG/DL (8.5-10.1)
[2023-08-13 04:28] LABS: TOTAL PROTEIN 7.9 GM/DL (6.4-8.2)
[2023-08-13 04:30] LABS: BILIRUBIN,TOTAL 0.4 MG/DL (0.1-1.0)
[2023-08-13 04:32] LABS: CREATININE SERUM 0.83 MG/DL (0.60-1.30)
[2023-08-13 04:40] LABS: BAND NEUTROPHILS 0 %; BASOPHILS % (MANUAL) 0 %; EOSINOPHILS % (MANUAL) 0 %; LYMPHOCYTES % (MANUAL) 5 %; MONOCYTES % (MANUAL) 4 %; NEUTROPHILS % (MANUAL) 91 %; RBC MORPH NORMAL
[2023-08-13] MEDS: inSUlin ASPART 1 UNIT/0.01 ML (PER UNIT) SC SCH ×2 (05:03→11:00)
[2023-08-13 07:49] VITALS: BP 141/79
[2023-08-13] MEDS: SENNOSIDES 8.6 MG TABLET PO SCH (07:53)
[2023-08-13] MEDS: DOCUSATE SODIUM 100 MG CAPSULE PO SCH (07:53)
--- NOTE | 2023-08-13 08:06 | Cardiology Progress Note ---
Subjective Date Seen by Provider: Aug 13, 2023 Time Seen by Provider: 08:05 Subjective/Events-last exam She was seen at bedside, feeling better, able to lay down a little bit on his back today, reporting that he felt better after the Lovenox injection Focused Exam Lactate Level 08/12/23 14:10: Lactic Acid Level 1.97 Objective-Cardiology Exam Last Set of Vital Signs Vital Signs 08/13/23 08/13/23 07:49 07:52 Temp 36.5 Pulse 72 Resp 14 B/P (MAP) 141/79 (99) Pulse Ox 98 O2 Delivery Room Air I&O Intake and Output 08/12/23 23:59 Intake Total 650 ml Output Total 750 ml Balance -100 ml Intake Oral 650 ml Output Urine Total 750 ml Daily Weight Change No General: Alert, Oriented X3, Cooperative HEENT: Atraumatic, PERRLA Neck: Supple, No JVD, No Thyromegaly Lungs: Clear to Auscultation, Normal Air Movement Heart: Regular Rate, Normal S1, Normal S2, No Murmurs Abdomen: Normal Bowel Sounds, Soft, No Tenderness, No Hepatosplenomegaly, No Masses Extremities: No Clubbing, No Cyanosis, No Edema, Normal Pulses, No Tenderness/Swelling Skin: No Rashes, No Breakdown, No Significant Lesion Neuro: Normal Gait, Normal Speech, Strength at 5/5 X4 Ext, Normal Tone, Sensation Intact Psych/Mental Status: Mental Status NL, Mood NL Results Lab Laboratory Tests 08/12/23 14:10 08/13/23 03:53 A/P-Cardiology Admission Diagnosis Shortness of breath Fatigue Hypertension Hyperlipidemia Assessment/Plan Shortness of breath, orthopnea Patient is reporting difficulty sleeping on his back, able to lay down on his stomach Having episode of fever with questionable infiltrate on his chest x-ray Labs are normal. Cardiac workup is normal Generalized fatigue, loss of energy Workup has been negative, had an echocardiogram done recently History of paroxysmal atrial fibrillation, not taking any medication, continue to monitor telemetry at this point. Hypertension, not taking any medication, monitor blood pressure Hyperlipidemia, I will avoid statin at this time due to his generalized weakness and fatigue History of multiple tick bites in the past, evaluate tickborne panel Obesity, discussed weight loss Anxiety, managed by primary care physician MODESTA EUGENE MD Aug 13, 2023 08:06
[2023-08-13] MEDS ORDERED: ALPR0.25 PO (11:56)
--- NOTE | 2023-08-13 11:56 | Discharge Summary ---
Diagnosis/Chief Complaint Date of Admission Aug 12, 2023 at 13:25 Date of Discharge Discharge Date: Aug 13, 2023 Discharge Diagnosis Dyspnea progressive and worsened Nocturnal hypoxia placed on oxygen 2 L at night Elevated blood pressure without diagnosis of hypertension Suspected severe sleep apnea Presumed pulmonary hypertension but unable to assess on echo Obesity Borderline diabetes hemoglobin A1c 6.1 Reason Hospital Visit Chief complaint: Dyspnea with diaphoresis This is a 73-year-old male clinic patient of mine who presented 2 days after clinic visit with worsening shortness of breath and diaphoresis. The only comfortable position he can be he is prone. to initiate workup to rule out aneurysm. Cardiology consulted. Discharge Summary Discharge Physical Examination Allergies: Coded Allergies: Iodinated Contrast Media (Unverified Adverse Reaction, Mild, RASH, 07/30/07) PT STATED ALLERGY TO "IV CONTRAST". STATED REACTION WAS A RASH. Vitals & I&Os Vital Signs Date Time Temp Pulse Resp B/P (MAP) Pulse Ox O2 Delivery O2 Flow Rate FiO2 08/13/23 13:09 08/13/23 12:00 36.5 74 18 96 08/13/23 07:52 Room Air General Appearance: Alert, Oriented X3, Cooperative Respiratory: Clear to Auscultation Cardiovascular: Regular Rate Psych/Mental Status: Mental Status NL Hospital Course Was the Problem List Reviewed?: Yes Michael Rocha is a 53 yo M with a PMH of morbidy obesity, paroxsymal Afib (untreated), HTN and HLD and pre-diabetes who presented to the ED on 08/12 with an array of complaints including worsening fatigue, shortness of breath/o rthopnea, dizziness, heart racing, and frequent urinarion of several months duration. He also reports several recent tick-bites, though denied rash or cough. The patient was recently evaluated by by his PCP (05/2023) and found to have normal levels of Vitamin B12, folate, ferritin, and T4 as well as a pre- diabetic a1C (6.1). The patient was admitted for further work-up of persistent dyspnea and fatigue. Echocardiogram was negative for congestion heart failure (of note, pulmonary artery pressure was not assessed). CTA of the abdomen and pelvis was negative for aortic dissection or aneurysm, pulmonary emboli, or any other acute cardi opulmonary or pelvic abnormality. Cardiac enlargement and a small fat-containing umbilical hernia were demonstrated. The patient was assessed by cardiology who had no concerns for PAD or cardiac disease otherwise. Labwork was unremarkable with normal hemoglobin, ABG and TSH and slightly elevated cortisol of 20.5 (PM upper limit = 17.3). Tick-serology was ordered; results are pending. Notably, a nocturnal oxygen study done Day 1 of hospitalization showed a total of 40 desaturations lasting a total of 13 minutes with a nayeli saturation of 80%, highly suggestive of sleep apnea. The patient recieved education on the risk factors, presentation and long-term outcomes associated with untreated sleep apnea as well as the importance of healthy weight, body habitus and lifestyle habitus. He was instructed to begin use of 2L of supplemental oxygen and night and to undergo a formal sleep study (a referral to Dr. Burgess has been placed). The patient was discharged on Day 2 of hospitalization with a home oxygen prescription and a follow-up appointment with his PCP. ORION LAUREANO Labs (last 24 hrs) Laboratory Tests 08/12/23 14:10: White Blood Count 5.3, Red Blood Count 5.32, Hemoglobin 16.8, Hematocrit 47, Mean Corpuscular Volume 88, Mean Corpuscular Hemoglobin 32, Mean Corpuscular Hemoglobin Concent 36, Red Cell Distribution Width 12.7, Platelet Count 213, Mean Platelet Volume 10.2, Immature Granulocyte % (Auto) 0, Neutrophils (%) (Auto) 59, Lymphocytes (%) (Auto) 31, Monocytes (%) (Auto) 7, Eosinophils (%) (Auto) 2, Basophils (%) (Auto) 1, Neutrophils # (Auto) 3.2, Lymphocytes # (Auto) 1.6, Monocytes # (Auto) 0.4, Eosinophils # (Auto) 0.1, Basophils # (Auto) 0.1, Immature Granulocyte # (Auto) 0.0, Erythrocyte Sedimentation Rate 1, Prothrombin Time 12.6, INR Comment 0.9, Activated Partial Thromboplast Time 29, D-Dimer < 0.27, Sodium Level 138, Potassium Level 3.8, Chloride Level 106, Carbon Dioxide Level 22, Anion Gap 10, Blood Urea Nitrogen 12, Creatinine 0.89, Estimat Glomerular Filtration Rate 101, BUN/Creatinine Ratio 13, Glucose Level 109H, Lactic Acid Level 1.97, Calcium Level 9.6, Corrected Calcium 9.3, Total Bilirubin 0.5, Aspartate Amino Transf (AST/SGOT) 30, Alanine Aminotransferase (ALT/SGPT) 50, Alkaline Phosphatase 64, Troponin I < 0.028, C-Reactive Protein High Sensitivity 0.14, B-Type Natriuretic Peptide < 10.0, Total Protein 7.7, Albumin 4.4, Thyroid Stimulating Hormone (TSH) 1.08, Total Cortisol 20.5H 08/12/23 15:12: Arterial Blood pH 7.51H, Arterial Blood Partial Pressure CO2 34L, Arterial Blood Partial Pressure O2 107H, Arterial Blood HCO3 27, Arterial Blood Total CO2 28.1, Arterial Blood Oxygen Saturation 99, Arterial Blood Base Excess 4.3H, Blood Gas Ventilator Setting NO, Blood Gas Inspired Oxygen ROOM AIR 08/12/23 15:15: Urine Opiates Screen NEGATIVE, Urine Oxycodone Screen NEGATIVE, Urine Methadone Screen NEGATIVE, Urine Barbiturates Screen NEGATIVE, Ur Tricyclic Antidepressants Screen NEGATIVE, Urine Phencyclidine Screen NEGATIVE, Urine Amphetamines Screen NEGATIVE, Urine Methamphetamines Screen NEGATIVE, Urine Benzodiazepines Screen NEGATIVE, Urine Cocaine Screen NEGATIVE, Urine Cannabinoids Screen NEGATIVE 08/12/23 16:55: Glucometer 98 08/13/23 03:53: White Blood Count 11.8H, Red Blood Count 5.39, Hemoglobin 17.0, Hematocrit 48, Mean Corpuscular Volume 89, Mean Corpuscular Hemoglobin 32, Mean Corpuscular Hemoglobin Concent 35, Red Cell Distribution Width 12.7, Platelet Count 216, Mean Platelet Volume 10.5, Immature Granulocyte % (Auto) 0, Neutrophils (%) (Auto) 90H, Lymphocytes (%) (Auto) 7L, Monocytes (%) (Auto) 2, Eosinophils (%) (Auto) 0, Basophils (%) (Auto) 0, Neutrophils # (Auto) 10.7H, Lymphocytes # (Auto) 0.9L, Monocytes # (Auto) 0.2, Eosinophils # (Auto) 0.0, Basophils # (Auto) 0.0, Immature Granulocyte # (Auto) 0.1, Neutrophils % (Manual) 91, Lymphocytes % (Manual) 5, Monocytes % (Manual) 4, Eosinophils % (Manual) 0, Basophils % (Manual) 0, Band Neutrophils 0, Blood Morphology Comment NORMAL, Sodium Level 138, Potassium Level 4.2, Chloride Level 108H, Carbon Dioxide Level 20L, Anion Gap 10, Blood Urea Nitrogen 14, Creatinine 0.83, Estimat Glomerular Filtration Rate 103, BUN/Creatinine Ratio 17, Glucose Level 156H, Calcium Level 9.6, Corrected Calcium 9.4, Total Bilirubin 0.4, Aspartate Amino Transf (AST/SGOT) 27, Alanine Aminotransferase (ALT/SGPT) 50, Alkaline Phosphatase 66, Total Protein 7.9, Albumin 4.3 Pending Labs Laboratory Tests 08/12/23 14:10: White Blood Count 5.3, Red Blood Count 5.32, Hemoglobin 16.8, Hematocrit 47, Mean Corpuscular Volume 88, Mean Corpuscular Hemoglobin 32, Mean Corpuscular Hemoglobin Concent 36, Red Cell Distribution Width 12.7, Platelet Count 213, Mean Platelet Volume 10.2, Immature Granulocyte % (Auto) 0, Neutrophils (%) (Auto) 59, Lymphocytes (%) (Auto) 31, Monocytes (%) (Auto) 7, Eosinophils (%) (Auto) 2, Basophils (%) (Auto) 1, Neutrophils # (Auto) 3.2, Lymphocytes # (Auto) 1.6, Monocytes # (Auto) 0.4, Eosinophils # (Auto) 0.1, Basophils # (Auto) 0.1, Immature Granulocyte # (Auto) 0.0, Erythrocyte Sedimentation Rate 1, Prothrombin Time 12.6, INR Comment 0.9, Activated Partial Thromboplast Time 29, D-Dimer < 0.27, Sodium Level 138, Potassium Level 3.8, Chloride Level 106, Carbon Dioxide Level 22, Anion Gap 10, Blood Urea Nitrogen 12, Creatinine 0.89, Estimat Glomerular Filtration Rate 101, BUN/Creatinine Ratio 13, Glucose Level 109, Lactic Acid Level 1.97, Calcium Level 9.6, Corrected Calcium 9.3, Total Bilirubin 0.5, Aspartate Amino Transf (AST/SGOT) 30, Alanine Aminotransferase (ALT/SGPT) 50, Alkaline Phosphatase 64, Troponin I < 0.028, C-Reactive Protein High Sensitivity 0.14, B-Type Natriuretic Peptide < 10.0, Total Protein 7.7, Albumin 4.4, Thyroid Stimulating Hormone (TSH) 1.08, Total Cortisol 20.5 08/12/23 15:12: Arterial Blood pH 7.51, Arterial Blood Partial Pressure CO2 34, Arterial Blood Partial Pressure O2 107, Arterial Blood HCO3 27, Arterial Blood Total CO2 28.1, Arterial Blood Oxygen Saturation 99, Arterial Blood Base Excess 4.3, Blood Gas Ventilator Setting NO, Blood Gas Inspired Oxygen ROOM AIR 08/12/23 15:15: Urine Opiates Screen NEGATIVE, Urine Oxycodone Screen NEGATIVE, Urine Methadone Screen NEGATIVE, Urine Barbiturates Screen NEGATIVE, Ur Tricyclic Antidepressants Screen NEGATIVE, Urine Phencyclidine Screen NEGATIVE, Urine Amphetamines Screen NEGATIVE, Urine Methamphetamines Screen NEGATIVE, Urine Benzodiazepines Screen NEGATIVE, Urine Cocaine Screen NEGATIVE, Urine Cannabinoids Screen NEGATIVE 08/12/23 16:55: Glucometer 98 08/13/23 03:53: White Blood Count 11.8, Red Blood Count 5.39, Hemoglobin 17.0, Hematocrit 48, Mean Corpuscular Volume 89, Mean Corpuscular Hemoglobin 32, Mean Corpuscular He moglobin Concent 35, Red Cell Distribution Width 12.7, Platelet Count 216, Mean Platelet Volume 10.5, Immature Granulocyte % (Auto) 0, Neutrophils (%) (Auto) 90, Lymphocytes (%) (Auto) 7, Monocytes (%) (Auto) 2, Eosinophils (%) (Auto) 0, Basophils (%) (Auto) 0, Neutrophils # (Auto) 10.7, Lymphocytes # (Auto) 0.9, Monocytes # (Auto) 0.2, Eosinophils # (Auto) 0.0, Basophils # (Auto) 0.0, Immature Granulocyte # (Auto) 0.1, Neutrophils % (Manual) 91, Lymphocytes % (Manual) 5, Monocytes % (Manual) 4, Eosinophils % (Manual) 0, Basophils % (Manual) 0, Band Neutrophils 0, Blood Morphology Comment NORMAL, Sodium Level 138, Potassium Level 4.2, Chloride Level 108, Carbon Dioxide Level 20, Anion Gap 10, Blood Urea Nitrogen 14, Creatinine 0.83, Estimat Glomerular Filtration Rate 103, BUN/Creatinine Ratio 17, Glucose Level 156, Calcium Level 9.6, Corrected Calcium 9.4, Total Bilirubin 0.4, Aspartate Amino Transf (AST/SGOT) 27, Alanine Aminotransferase (ALT/SGPT) 50, Alkaline Phosphatase 66, Total Protein 7.9, Albumin 4.3, Lyme Disease Screen IgG & IgM Ab [Pending], Lyme Antibody Interpretation [Pending], Ehrlichia chaffeensis IgG Antibody [Pending], Ehrlichia chaffeensis IgM Antibody [Pending], Spotted Fever Group IgG Antibody [Pending], Spotted Fever Group IgM Antibody [Pending], [place] Antibody [Pending] Discharge Home Medications: Active Scripts Active Xanax (Alprazolam) 0.25 Mg Tablet 0.25 Mg PO Q4H Instructions to patient/family Please see electronic discharge instructions given to patient. PATRICIA LEIGH DO Aug 13, 2023 11:56
[2023-08-13 12:00] VITALS: BP 141/79
--- NOTE | 2023-08-13 12:21 | Anesthesia-Procedure Note ---
Procedures/Interventions Procedure Start/Stop/Diagnosis Date of Procedure: Aug 12, 2023 Start Time: 14:20 Brief History Late entry from 08-12-23 at 1430: Called to cardiac step down for difficult IV start. 20g IV started to patient's right hand x1 attempt. Opsite in place. Stop Time: 14:25 GAUDENCIO MANDUJANO CRNA Aug 13, 2023 12:20
--- NOTE | 2023-08-13 16:02 | Progress Note ---
ORION LAUREANO 08/13/23 1602: Progress Note Michael Rocha is a 53 yo M with a PMH of morbidy obesity, paroxsymal Afib (untreated), HTN and HLD and pre-diabetes who presented to the ED on 08/12 with an array of complaints including worsening fatigue, shortness of breath/orthopnea, dizziness, heart racing, and frequent urinarion of several months duration. He also reports several recent tick-bites, though denied rash or cough. The patient was recently evaluated by by his PCP (05/2023) and found to have normal levels of Vitamin B12, folate, ferritin, and T4 as well as a pre- diabetic a1C (6.1). The patient was admitted for further work-up of persistent dyspnea and fatigue. Echocardiogram was negative for congestion heart failure (of note, pulmonary artery pressure was not assessed). CTA of the abdomen and pelvis was negative for aortic dissection or aneurysm, pulmonary emboli, or any other acute cardiopulmonary or pelvic abnormality. Cardiac enlargement and a small fat- containing umbilical hernia were demonstrated. The patient was assessed by cardiology who had no concerns for PAD or cardiac disease otherwise. Labwork was unremarkable with normal hemoglobin, ABG and TSH and slightly elevated cortisol of 20.5 (PM upper limit = 17.3). Tick-serology was ordered; results are pending. Notably, a nocturnal oxygen study done Day 1 of hospitalization showed a total o f 40 desaturations lasting a total of 13 minutes with a nayeli saturation of 80%, highly suggestive of sleep apnea. The patient recieved education on the risk factors, presentation and long-term outcomes associated with untreated sleep apnea as well as the importance of healthy weight, body habitus and lifestyle habitus. He was instructed to begin use of 2L of supplemental oxygen and night and to undergo a formal sleep study (a referral to Dr. Burgess has been placed). The patient was discharged on Day 2 of hospitalization with a home oxygen prescription and a follow-up appointment with his PCP. LIZA LEIGH DO 08/13/232121: Supervisory-Addendum Brief Verification & Attestation Participated in pt care: history, MDM, physical Personally performed: exam, history, MDM, supervision of care Care discussed with: Medical Student Procedures: n/a Results interpretation: Verified all documentation Verification and Attestation of Medical Student E/M Service A medical student performed and documented this service in my presence. I reviewed and verified all information documented by the medical student and made modifications to such information, when appropriate. I personally performed the physical exam and medical decision making. Liza Leigh, Aug 13, 2023,21:22 ORION LAUREANO Aug 13, 2023 16:02 LIZA LEIGH DO Aug 13, 2023 21:22
== END 2023-08-13 13:09 | disposition home or self-care (01) ==
LOC: CSD 13:25 → UNDOADMOB 13:25 → CSD 13:30 → UNDODISOB 08-13 13:09
PROVIDERS: ADMIT Internal Medicine; ATTEND Internal Medicine
DX: R06.00 Dyspnea, unspecified (principal); R09.02 Hypoxemia; R06.01 Orthopnea; R07.9 Chest pain, unspecified; R06.02 Shortness of breath; I48.0 Paroxysmal atrial fibrillation; R03.0 Elevated blood-pressure reading, without diagnosis of hypertension; I27.20 Pulmonary hypertension, unspecified; R73.03 Prediabetes; R61 Generalized hyperhidrosis; E66.01 Morbid (severe) obesity due to excess calories; I10 Essential (primary) hypertension; F41.9 Anxiety disorder, unspecified; E78.5 Hyperlipidemia, unspecified; R53.83 Other fatigue; Z86.79 Personal history of other diseases of the circulatory system; Z68.38 Body mass index [BMI] 38.0-38.9, adult; Z86.19 Personal history of other infectious and parasitic diseases
CPT/HCPCS: 36600; 71045; 71275; 74174; 80053 ×2; 80306; 82533; 82805; 82947; 83605; 83880; 84443; 84484; 85007; 85025; 85027; 85379; 85610; 85652; 85730; 86141; 86618; 86666 ×2; 86668; 86757 ×2; 93005; 94760; 96372; 96374; 96375; G0378; G0379; 36415